=== PATIENT | male | born 1985 | race Caucasian/White ===

== ENCOUNTER 2021-08-09 06:53 | Outpatient (REF) | payer OTHER, SELFPAY ==
[2021-08-09 07:11] LABS: Hematocrit 44.3 % (42-52); Hemoglobin 15.1 g/dl (14.0-18.0); Mean Corpuscular HGB Conc 34.1 g/dl (31.0-36.0); Mean Corpuscular Hemoglobin 27.8 pg (27.0-33.0); Mean Corpuscular Volume 81.6 fL (80-98); Mean Platelet Volume 9.9 fL (9.4-12.4); Platelet Count 296 X10*3/uL (160-400); Red Blood Count 5.43 X10*6/uL (4.60-5.80); Red Cell Distribution Width 13.2 % (11.0-16.0)
[2021-08-09 07:42] LABS: Alanine Aminotransferase 24 U/L (0-40); Albumin Level 4.1 g/dL (3.5-5.0); Alkaline Phosphatase 80 U/L (39-117); Anion Gap 11 (12-20); Aspartate Amino Transferase 18 U/L (5-37); Bilirubin Total 0.6 mg/dL (0.0-1.0); Blood Urea Nitrogen 11 mg/dL (9-16); Calcium 8.9 mg/dL (8.4-10.2); Carbon Dioxide 25 mmol/L (22-29); Chloride 109 mmol/L (96-108); Cholesterol 132 mg/dL; Estimated Glomerular Filt Rate > 60; Glucose Fasting 107 mg/dL (60-99); HDL Cholesterol 28 mg/dL; LDL Cholesterol Calculated 91 mg/dl; Potassium 4.1 mmol/L (3.3-5.1); Sodium 141 mmol/L (135-145); Triglycerides 67 mg/dL
[2021-08-09 08:02] LABS: TSH reflex Free T4 1.38 uIU/mL (0.32-4.0)
[2021-08-09 08:07] LABS: HBc Num1 0.26 S/CO (0.00-0.79); Hepatitis B Core Antibody Nonreactive (Nonreactive)
[2021-08-09 08:09] LABS: HBS Num1 > 1000.00 mIU/mL (0-7.99); HBsAGNum1 0.47 S/CO (0.00-0.99); HIV AB/AG Nonreactive (Nonreactive); HIV Num 1 0.07 S/CO (0.00-0.99); Hepatitis B Surface Antigen Negative (Negative); ~HepC Num1 0.14 S/CO (0.00-0.79); ~Hepatitis B Surface Antibody REACTIVE (Nonreactive); ~Hepatitis C Antibody Nonreactive (Nonreactive)
[2021-08-09 09:03] LABS: Syphilis Screen Nonreactive (Nonreactive)
[2021-08-18 16:52] LABS: Chlamydia Pneumoniae IgA <1:16 titer (<1:16); Chlamydia Pneumoniae IgG <1:64 titer (<1:64); Chlamydia Pneumoniae IgM <1:10 titer (<1:10); Chlamydia Psittaci IgA <1:16 titer (<1:16); Chlamydia Psittaci IgG <1:64 titer (<1:64); Chlamydia Psittaci IgM <1:10 titer (<1:10); Chlamydia Trachomatis IgA <1:16 titer (<1:16); Chlamydia Trachomatis IgG <1:64 titer (<1:64); Chlamydia Trachomatis IgM <1:10 titer (<1:10)
== END 2021-08-09 06:54 | disposition home or self-care (01) ==
LOC: HO.LAB 06:53
PROVIDERS: PCP Physician Assistant; Visit Provider Physician Assistant
DX: I10 Essential (primary) hypertension (principal); Z13.1 Encounter for screening for diabetes mellitus; Z13.220 Encounter for screening for lipoid disorders; Z13.29 Encounter for screening for other suspected endocrine disorder
CPT/HCPCS: 36415; 80053; 80061; 84443; 85027; 86631; 86632; 86704; 86706; 86780; 86803; 87340; 87389

== ENCOUNTER 2022-05-23 07:29 | Outpatient (REF) | payer OTHER, SELFPAY ==
[2022-05-23 08:10] LABS: Hematocrit 44.8 % (42.0-52.0); Hemoglobin 15.2 g/dl (14.0-18.0); Mean Corpuscular HGB Conc 33.9 g/dl (31.0-36.0); Mean Corpuscular Volume 82.5 fL (80.0-98.0); Mean Platelet Volume 10.6 fL (9.4-12.4); Platelet Count 291 X10*3/uL (160-400); Red Blood Count 5.43 X10*6/uL (4.60-5.80); Red Cell Distribution Width 13.9 % (11.0-16.0); White Blood Count 6.3 X10*3/uL (4.8-10.8)
[2022-05-23 08:49] LABS: Alanine Aminotransferase 24 U/L (0-40); Albumin Level 4.3 g/dL (3.5-5.0); Alkaline Phosphatase 76 U/L (39-117); Anion Gap 13 (12-20); Aspartate Amino Transferase 22 U/L (5-37); Bilirubin Total 0.8 mg/dL (0.0-1.0); Blood Urea Nitrogen 16 mg/dL (9-16); Calcium 8.8 mg/dL (8.4-10.2); Carbon Dioxide 24 mmol/L (22-29); Chloride 107 mmol/L (96-108); Estimated Glomerular Filt Rate > 60; Glucose Fasting 86 mg/dL (60-99); Potassium 4.2 mmol/L (3.3-5.1); Sodium 140 mmol/L (135-145); Total Protein 7.2 g/dL (6.5-8.0)
[2022-05-23 09:08] LABS: HIV AB/AG Nonreactive (Nonreactive); HIV Num 1 0.11 S/CO (0.00-0.99)
[2022-05-23 09:13] LABS: TSH reflex Free T4 0.79 uIU/mL (0.32-4.0)
[2022-05-23 09:14] LABS: Syphilis Screen Nonreactive (Nonreactive)
[2022-05-23 14:01] LABS: CT PCR NOT DETECTED (Not Detect.); NG PCR NOT DETECTED (Not Detect.)
== END 2022-05-23 07:30 | disposition home or self-care (01) ==
LOC: HO.LAB 07:29
PROVIDERS: PCP Physician Assistant; Visit Provider Physician Assistant
DX: Z11.3 Encounter for screening for infections with a predominantly sexual mode of transmission (principal); Z11.8 Encounter for screening for other infectious and parasitic diseases; Z11.4 Encounter for screening for human immunodeficiency virus [HIV]; Z13.1 Encounter for screening for diabetes mellitus; Z13.29 Encounter for screening for other suspected endocrine disorder
CPT/HCPCS: 80053; 84443; 85027; 86780; 87389; 87491; 87591

== ENCOUNTER 2023-03-19 06:17 | Outpatient (REF) | payer OTHER, SELFPAY ==
[2023-03-19 08:08] LABS: Estimated Average Glucose 91 mg/dL; Hemoglobin A1c % 4.8 %
[2023-03-19 11:01] LABS: CT PCR NOT DETECTED (Not Detect.); NG PCR NOT DETECTED (Not Detect.)
[2023-03-20 08:27] LABS: HBS Num1 > 1000.00 mIU/mL (0-7.99); HBc Num1 0.05 S/CO (0.00-0.79); HBsAGNum1 0.33 S/CO (0.00-0.99); HIV AB/AG Nonreactive (Nonreactive); HIV Num 1 0.06 S/CO (0.00-0.99); Hepatitis B Core Antibody Nonreactive (Nonreactive); Hepatitis B Surface Antigen Negative (Negative); ~HepC Num1 0.14 S/CO (0.00-0.79); ~Hepatitis B Surface Antibody REACTIVE (Nonreactive); ~Hepatitis C Antibody Nonreactive (Nonreactive)
[2023-03-20 08:33] LABS: Syphilis Screen Nonreactive (Nonreactive)
== END 2023-03-19 06:18 | disposition home or self-care (01) ==
LOC: HO.LAB 06:17
PROVIDERS: Nurse Practitioner Family; PCP Physician Assistant; Visit Provider Physician Assistant
DX: Z11.4 Encounter for screening for human immunodeficiency virus [HIV] (principal); E66.9 Obesity, unspecified; Z20.2 Contact with and (suspected) exposure to infections with a predominantly sexual mode of transmission; Z13.1 Encounter for screening for diabetes mellitus
CPT/HCPCS: 0353U; 83036; 86704; 86706; 86780; 86803; 87340; 87389

== ENCOUNTER 2023-04-02 06:10 | Outpatient (REF) | payer OTHER, SELFPAY ==
[2023-04-02 07:32] LABS: Hemoglobin 14.9 g/dl (14.0-18.0); Mean Corpuscular HGB Conc 33.9 g/dl (31.0-36.0); Mean Corpuscular Hemoglobin 27.9 pg (27.0-33.0); Mean Corpuscular Volume 82.4 fL (80.0-98.0); Mean Platelet Volume 10.3 fL (9.4-12.4); Platelet Count 301 X10*3/uL (160-400); Red Blood Count 5.34 X10*6/uL (4.60-5.80); Red Cell Distribution Width 13.3 % (11.0-16.0); White Blood Count 6.4 X10*3/uL (4.8-10.8)
[2023-04-02 07:59] LABS: Alanine Aminotransferase 31 U/L (0-40); Alkaline Phosphatase 70 U/L (39-117); Anion Gap 12 (12-20); Aspartate Amino Transferase 24 U/L (5-37); Bilirubin Total 0.7 mg/dL (0.0-1.0); Blood Urea Nitrogen 12 mg/dL (9-16); Calcium 8.7 mg/dL (8.4-10.2); Carbon Dioxide 24 mmol/L (22-29); Chloride 108 mmol/L (96-108); Cholesterol 151 mg/dL; Estimated Glomerular Filt Rate > 60; Glucose Fasting 95 mg/dL (60-99); HDL Cholesterol 35 mg/dL; LDL Cholesterol Calculated 99 mg/dl; Potassium 4.2 mmol/L (3.3-5.1); Sodium 140 mmol/L (135-145); Total Protein 6.8 g/dL (6.5-8.0); Triglycerides 87 mg/dL
[2023-04-02 08:20] LABS: TSH reflex Free T4 1.36 uIU/mL (0.32-4.0)
[2023-04-10 14:18] LABS: Testosterone, Free 52.1 pg/mL (35.0-155.0); Testosterone, Total 314 ng/dL (250-1100)
== END 2023-04-02 06:11 | disposition home or self-care (01) ==
LOC: HO.LAB 06:10
PROVIDERS: PCP Physician Assistant; Visit Provider Physician Assistant
DX: E66.01 Morbid (severe) obesity due to excess calories (principal); Z13.29 Encounter for screening for other suspected endocrine disorder; Z13.220 Encounter for screening for lipoid disorders; Z13.1 Encounter for screening for diabetes mellitus; Z68.43 Body mass index [BMI] 50.0-59.9, adult; E66.9 Obesity, unspecified
CPT/HCPCS: 36415; 80053; 80061; 84402; 84403; 84443; 85027

== ENCOUNTER 2023-07-06 07:54 | Outpatient (AMB) | payer OTHER, SELFPAY ==
[2023-07-06 07:56] VITALS: BP 140/78; PULSE 81; O2SAT 98; BMI 52.9
--- NOTE | 2023-07-06 07:56 | MHC.PC.OV ---
Vital Signs 07/06/23 07:56 Height 6 ft 3 in Weight 423 lb BMI 52.9 BP 140/78 H Blood Pressure Location Lt brachial Position Sitting Pulse 81 Pulse Source Pulse Oximeter Pulse Oximetry (%) 98 Oxygen Delivery Method Room Air Intake Visit Reasons: PE Allergies No Known Allergies Allergy (Verified 07/06/23 08:15) Medication List - Last Reconciled 07/06/23 by Franc Mccauley PA-C Tobacco use date assessed: 03/18/23 Dental Screening Dental Screen Date: 07/06/23 Did you have a dental visit in the last 12 months?: Yes Did you have a dental problem in the last 6 months where you did not have access to dental care?: No Was dental information given to patient?: Patient has dentist HPI PE HPI Details Patient is a 38-year-old male here today for annual physical. Patient has a past medical history significant for obesity. .. Morbid obesity: He is status post gastric sleeve many years ago. has been working on being more physically active to reduce his weight. 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 Did have sleep study 2017 which showed normal sleep results. Unfortunately has gained weight since last office visit. We have tried to prescribe him medication for weight loss though insurance did not cover. 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 Will try to prescribe him Wegovy for weight loss. .. Elevated blood pressure reading: Noted elevated blood pressure reading today in office. He is not interested in starting medications for his blood pressure as he attributes his blood pressure being elevated cause of his weight and would like to work on weight reduction before starting medication. Advised denies any headache, chest discomfort, heart palpitations. 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 1. Little interest or pleasure in doing things: not at all 2. Feeling down, depressed, or hopeless: not at all 3. Trouble falling or staying asleep, or sleeping too much: not at all 4. Feeling tired or having little energy: not at all 5. Poor appetite or overeating: not at all 6. Feeling bad about yourself - or that you are a failure or have let yourself or your family down: not at all 7. Trouble concentrating on things, such as reading the newspaper or watching television: not at all 8. Moving or speaking so slowly that other people could have noticed. Or the opposite - being so fidgety or restless that you have been moving around a lot more than usual: not at all 9. Thoughts that you would be better off or of hurting yourself in some way: not at all Total score: 0 Depression Screening Interpretation: Negative 69249 - PHQ-9 Billing: Yes Source: Developed by Drs. Karthik Omer, Carlita Andrade, James Díaz and colleagues, with an educational mari from [employer]. Thrive Questionnaire Date Thrive assessed: 03/18/23 AUDIT C Alcohol Use Questionnaire (AUDIT-C) 1. How often do you have a drink containing alcohol?: Never Total Score: 0 ARLEEN-7 AMB Questionnaire ARLEEN-7 Date ARLEEN - 7 assessed: 07/06/23 Feeling nervous, anxious, or on edge: 0 = Not at all Not being able to stop or control worryin = Not at all Worrying too much about different things: 0 = Not at all Trouble relaxin = Not at all Being so restless that it is hard to sit still: 0 = Not at all Becoming easily annoyed or irritable: 0 = Not at all Feeling afraid as if something awful might happen: 0 = Not at all Total ARLEEN-7 score (0-4 normal; 5-9 mild; 10-14 moderate; 15-21 severe): 0 Source: Developed by Drs. Karthik Omer, James Avalos and colleagues, with an educational mari from [employer]. ARLEEN-7 Assessment Billing ARLEEN-7 Assessment Tool: ARLEEN-7 Assessment 88871 Review of Systems Const Denies body aches, Denies chills, Denies excessive sweating, Denies fatigue, Denies fever(s) and Denies headache(s) Eyes Denies blurry vision ENT Denies dysphagia, Denies vertigo, Denies dizziness, Denies headache(s), Denies hearing loss and Denies tinnitus Card Denies chest pain, Denies chest pain with activity, Denies syncope, Denies irregular heart rhythm and Denies dyspnea Resp Denies chest congestion, Denies cough, Denies hemoptysis, Denies dyspnea and Denies wheezing GI Denies abdominal pain, Denies melena, Denies hematochezia, Denies coffee ground emesis, Denies dysphagia, Denies diarrhea, Denies nausea and Denies vomiting Denies difficulty urinating, Denies dysuria, Denies urinary frequency, Denies urinary hesitancy and Denies urinary urgency Musc Denies arthralgias, Denies limited range of motion, Denies muscle cramps and Denies muscle weakness Skin/Breast Denies rash and Denies skin ulcer Neuro Denies Abnormal speech present, Denies confusion, Denies vertigo, Denies dizziness, Denies syncope, Denies headache(s), Denies memory loss and Denies seizure-like activity Psych Denies anxiety, Denies confusion, Denies depression, Denies memory loss, Denies panic attacks and Denies paranoia Endo Denies excessive sweating, Denies fatigue, Denies flushing, Denies polydipsia and Denies polyuria Aller/Immun Denies wheezing Physical exam (Primary Care) Vital Signs: Last Vital Signs Pulse 81 07/06/23 07:56 BP 140/78 H 07/06/23 07:56 Pulse Ox 98 07/06/23 07:56 Oxygen Delivery Method Room Air 07/06/23 07:56 BMI result Body Mass Index 52.9 BMI Assessment/Plan discussion: High Tobacco/Smoking Status: Tobacco use Status Tobacco use date assessed 03/18/23 07/06/23 08:08 Patient Tobacco Use Status Current someday Tobacco 07/06/23 08:08 Tobacco use type Cigar 07/06/23 08:08 e-Cigarette/Vaping Use Never Used 07/06/23 08:08 PHQ-9: PHQ-9 Score PHQ-9: Total score 0 07/06/23 08:21 Depression Screening Interpretation: Negative Thrive Assessment: Date of Thrive Assessment Date Thrive assessed 03/18/23 07/06/23 08:08 Const Other: Obese General: cooperative, comfortable, no acute distress, alert and awake; No confusion Orientation/consciousness: oriented to person, oriented to place, patient oriented x3 and No confusion HENMT Head: Yes normocephalic Ears: external ears normal and TM's normal bilaterally Face and sinus: No sinus tenderness Mouth: Normal oral and palatal mucosa present and tongue normal Teeth and gingiva: dentition normal and gingiva normal Throat: Yes posterior oropharynx normal, Yes tonsils normal and Yes uvula midline Eyes Conjunctivae: conjunctivae normal Sclerae: sclerae normal Pupils: Equal, round and reactive pupils present EOM: EOMs intact bilaterally Direct Ophthalmoscopy: No no photophobia Neck Neck: Yes no lymphadenopathy, No tender and Yes no JVD Thyroid: Thyroid normal Carotids: no bruits Chest Chest palpation & inspection: no tenderness Resp Effort & Inspection: normal respiratory effort, no audible wheezes, not labored and no stridor Auscultation: no crackles, no rales, no rhonchi and no wheezes Cardio Jugular venous distension: no JVD Rate: regular rate, not bradycardic and not tachycardic Rhythm: regular rhythm Bruits: no carotid bruits Peripheral pulses: Peripheral pulses 2+ throughout GI Inspection: Yes normal to inspection, No abdominal wall ecchymosis and No visible herniation Palpation (GI): Soft to palpation, nontender, no guarding, not rigid and No hepatosplenomegaly present Auscultation: normoactive bowel sounds General: Yes no CVA tenderness Back/Spine/Pelvis Back: no CVA tenderness and No back tenderness Cervical Spine: cervical ROM normal Thoracic/Lumbar Spine: thoracic and lumbar spine normal to inspection, straight leg raise negative bilaterally, No thoraco-lumbar ROM limited and No lumbar spinal tenderness Skin Lesions: no lesions Rashes: no rashes Wounds: no wounds Neuro General: oriented to person, oriented to place, patient oriented x3, CN's II-XI intact bilaterally and No confusion Cranial nerves: Yes Equal, round and reactive pupils present and Yes Normal accommodation reflex present Cognition (Neuro): normal cognition Speech: No Abnormal speech present Gait exam (Neuro): Normal gait present Motor exam (neuro): 5/5 motor strength present throughout Extrem Right upper extremity: full ROM; no cyanosis Left upper extremity: full ROM; no cyanosis Right lower extremity: no edema Left lower extremity: no edema Psych Appearance: grossly normal Mental Status: mental status grossly normal Affect: normal affect Attitude: cooperative Thought process: Normal thought process present Assessment and Plan Assessment & Plan (1) Annual physical exam: Code(s): Z00.00 - Encounter for general adult medical examination without abnormal findings (2) Obese: Code(s): E66.9 - Obesity, unspecified Qualifiers: Body mass index: BMI 50.0-59.9 Obesity classification: adult class 3 (BMI >= 40) Obesity type: due to excess calories Serious obesity comorbidity presence: without serious comorbidity Qualified Code(s): E66.01 - Morbid (severe) obesity due to excess calories; Z68.43 - Body mass index [BMI] 50.0-59.9, adult Plan: Patient does understand his BMI is well over 50 and will try to work on lifestyle modifications to reduce his weight. He is status post gastric sleeve. Unfortunately has gained his weight back. We have tried to send several weight loss medication though not covered by insurance. Does have core minute day of higher blood pressure readings here in the office. Try to send in Wegovy. He is willing to reestablish with weight management program and dietitian. (3) HTN (hypertension): Code(s): I10 - Essential (primary) hypertension Qualifiers: Hypertension type: primary hypertension Qualified Code(s): I10 - Essential (primary) hypertension Plan: Blood pressure reading slightly elevated today in office. Not interested in starting medication at this time will work on reducing his weight as his weight is likely the reason for his higher blood pressures. Orders: Orders Complete Blood Count no Diff 11 Months Z13.1 - Encounter for screening for diabetes mellitus Comprehensive [place]. Panel Fast 11 Months Z13.1 - Encounter for screening for diabetes mellitus Lipid Panel 11 Months I10 - Essential (primary) hypertension Microalbumin, Random (w Creat) 11 Months I10 - Essential (primary) hypertension Referrals Nutrition/Dietitian Referral E66.01 - Morbid (severe) obesity due to excess calories, Z68.43 - Body mass index [BMI] 50.0-59.9, adult Medical Weight Management Referral E66.01 - Morbid (severe) obesity due to excess calories, Z68.43 - Body mass index [BMI] 50.0-59.9, adult Medications: New semaglutide (weight loss) (Wegovy) administer weeks 1 through 4 of therapy 0.25 mg (0.5 mL) subcut QWEEK 4 weeks 2 mL 0RF E66.9 - Obesity, unspecified, I10 - Essential (primary) hypertension semaglutide (weight loss) (Wegovy) administer weeks 1 through 4 of therapy 0.25 mg (0.5 mL) subcut QWEEK 4 weeks 2 mL 0RF E66.9 - Obesity, unspecified, I10 - Essential (primary) hypertension Coding Level of Care Code Est Pt [facility] Care [id number]) Diagnoses Annual physical exam Z00.00 Class 3 severe obesity due to excess calories without serious comorbidity with body mass index (BMI) of 50.0 to 59.9 in adult E66.01; Z68.43 Body mass index: BMI 50.0-59.9 Obesity classification: adult class 3 (BMI >= 40) Obesity type: due to excess calories Serious obesity comorbidity presence: without serious comorbidity Primary hypertension I10 Hypertension type: primary hypertension Additional Codes ARLEEN-7 Assessment Billing - ARLEEN-7 Assessment Tool: ARLEEN-7 Assessment 94231 ([id number])
== END 2023-07-06 08:43 | disposition home or self-care (01) ==
PROVIDERS: PCP Physician Assistant; Visit Provider Physician Assistant
DX: Z00.00 Encounter for general adult medical examination without abnormal findings (principal); E66.01 Morbid (severe) obesity due to excess calories; Z68.43 Body mass index [BMI] 50.0-59.9, adult; I10 Essential (primary) hypertension
CPT/HCPCS: 99395

== ENCOUNTER → 2023-11-05 12:21 | Outpatient (BNVA) | payer OTHER, SELFPAY | PROVIDERS: PCP Physician Assistant; Visit Provider Surgery ==

== ENCOUNTER → 2023-11-20 08:11 | Outpatient (BNVA) | payer OTHER, SELFPAY | PROVIDERS: PCP Physician Assistant; Visit Provider Surgery ==

== ENCOUNTER 2023-11-20 13:57 | Outpatient (AMB) | payer OTHER, SELFPAY ==
--- OUTSIDE RECORDS SUMMARY | 2023-11-20 08:14 | XMS_ITS | Continuity of Care Document ---
Author Name Unknown Organization Pre [facility] Address [address] [address]- Care Team Providers Care Corporate Development Officer Name Role Phone Joseph Thomas MD, Ashley Chowdhury Primary Care Physician [phone] Encounter [facility] [place] Date(s): 09/28/19 - 10/08/19 Pre Op [facility]flow [address] [address]- [facility] Attending Physician: Shahbaz Marroquin Admitting Physician: Shahbaz Marroquin Referring Physician: Shahbaz Marroquin Allergies, Adverse Reactions, Alerts Substance Reaction Severity Status NKA Active Medications acetaminophen 325 mg oral tablet 650 mg, 2, tablet, By Mouth, Every 4 hours, # 30 tablet, Refills 0, Tot. Refills 0, Maintenance, 10/04/19 12:56:51 EST, Print Requisition Start Date: 10/04/19 Status: Ordered Colace sodium 100 mg oral capsule 100 mg, 1, capsule, By Mouth, 2 times a day, # 60 capsule, Refills 0, Tot. Refills 0, Maintenance, 10/04/19 12:56:45 EST, Print Requisition Start Date: 10/04/19 Status: Ordered Multivitamin Daily, 0 Refills, Maintenance, 08/15/19 16:04:18 EDT Start Date: 08/15/19 Status: Ordered omeprazole 20 mg oral enteric coated capsule 1 capsule = 20 mg, By Mouth, 2 times a day, # 60 capsule, 4 Refills, Maintenance, 10/04/19 12:57:22EST, EC Capsule Start Date: 10/04/19 Status: Ordered Problem List Condition Effective Dates Status Health Status Inform ant Eczema(Confirmed) Active Gastritis, Helicobacter pylori(Confirmed) Active Morbid obesity with BMI of 5 0.0-59.9, adult(Confirmed) Active Social History Social History Type Response Smoking Status Cigars or pipes but not daily within last 30 days entered on: 10/03/19 Sex
--- OUTSIDE RECORDS SUMMARY | 2023-11-20 08:14 | XMS_ITS | Continuity of Care Document ---
Author Name Unknown Organization [facility] Address [address] [place] [address] ve [address] [place] [address]- Care Team Providers Care Internet Sales Consultant Name Role Phone Joseph Thomas MD, Ashley Chowdhury Primary Care Physician Encounter [facility] [place] Date(s): 04/18/20 - 06/15/20 [facility] [address] [place] [address]- [facility] Attending Physician: Clay PAULSON,RD,TRINAN, Felipa Perkins Allergies, Adverse Reactions, Alerts Substance Reaction Severity [...]
--- OUTSIDE RECORDS SUMMARY | 2023-11-20 08:14 | XMS_ITS | Continuity of Care Document ---
Author Name Unknown Organization [facility] Address [address] [place] [address] [address] [place] [address]- Care Team Providers Care Certified Art Therapist Name Role Phone Joseph Thomas MD, Ashley Chowdhury Primary Care Physician [phone] [place] [facility] [place] - 06/15/[address] [place] [address]- [facility] Attending Physician: Admtr, [id number] Admitting Physician: AdmtrShahbaz Referring Physician: Admtr, Ar8 Allergies, Adverse Reactions, Alerts Substance Reaction Severity [...]
--- OUTSIDE RECORDS SUMMARY | 2023-11-20 08:14 | XMS_ITS | Continuity of Care Document ---
Author Name Unknown Organization [facility] Address [address] [place] [address] [address] [place] [address]- Care Team Providers Care Glass Sagger Name Role Phone Joseph Thomas MD, Ashley Chowdhury Primary Care Physician En[place] [facility] [place] Date(s): 10/11/19 - 10/21/[address] [place] [address]- [facility] Attending Physician: Admimer, [id number] Admitting Physician: Admtr, Ar8 Referring Physician: Admtr, Ar8 Allergies, Adverse Reactions, [...]
--- OUTSIDE RECORDS SUMMARY | 2023-11-20 08:14 | XMS_ITS | Continuity of Care Document ---
Author Name Unknown Organization [facility] Address [address] [place] [address] [address] [place] [address]- Care Team Providers Care Yarn Salvager Name Role Phone Joseph Thomas MD, Ashley Chowdhury Primary Care Physician [phone] Encounter [facility] [place] Date(s): 11/02/19 - 11/09/[address] [place] [address]- [facility] Encounter Diagnosis Morbid obesity with BMI of 50.0-59.9, adult(Discharge Diagnosis) - 11/02/19 Attending Physician: Jong Palacio MD Referring Physician: Ashley Arreaga MD Allergies, Adverse Reactions, Alerts Substance Reaction Severity [...] with BMI of 5 0.0-59.9, adult(Confirmed) Active Diagnosis Diagnosis Type Effective Dates Health Status Cl inical Service Informant Morbid obesity with BMI of 50.0-59.9, adult Discharge Diagnosis 11/02/19 Vital Signs Most recent to oldest [Reference Range]: 1 Height 190.53 cm (11/02/19 10:39 AM) Weight 176 kg (11/02/19 10:39 AM) Pulse Rate [55-90 bpm] 52 bpm *L* (11/02/19 10:39 AM) Body Mass Index [18.5-24.99] 48.48 *>HHI* (11/02/19 10:39 AM) Blood Pressure [90-138/55-84 mm Hg] 149/ 90mm Hg *H* (11/02/19 10:39 AM) Respiratory Rate [16-30 br/min] 16 br/mi n (11/02/19 10:39 AM) Temperature [96.8-100.4 DegF] 98.6 DegF (11/02/19 10:39 AM) Blood pressure sites Arm, left (11/02/19 10:39 AM) Temperature Route Temporal (11/02/19 10:39 AM) Weight Obtained Via Standing scale (11/02/19 10:39 AM) Social History Social History Type Response Smoking Status Cigars or pipes but not daily within last 30 days entered on: 10/03/19 Sex
--- OUTSIDE RECORDS SUMMARY | 2023-11-20 08:14 | XMS_ITS | Continuity of Care Document ---
Author Name Unknown Organization [facility] Address [address] [place] [address] [address] [place] [address]- Care Team Providers Care Mink Rancher Name Role Phone Joseph Thomas MD, Ashley Chowdhury Primary Care Physician Encounter [facility] [place] Date(s): 10/27/19 - 11/03/[address] [place] [address]- [facility] Attending Physician: Clay PAULSON,RD,LDN, Felipa Perkins Allergies, Adverse Reactions, Alerts Substance [...]
--- OUTSIDE RECORDS SUMMARY | 2023-11-20 08:14 | XMS_ITS | Continuity of Care Document ---
Author Name Unknown Organization [facility] Address [address] [place] [address] [address] [place] [address]- Care Team Providers Care Out Of School Hours Care Worker Name Role Phone Joseph Thomas MD, Ashley Chowdhury Primary Care Physician [place] [facility] [place] Date(s): 10/11/19 - 10/18/[address] [place] [address]- [facility] Attending Physician: Jong Palacio MD Referring Physician: [...] with BMI of 5 0.0-59.9, adult(Confirmed) Active Vital Signs Most recent to oldest [Reference Range]: 1 Height 190.53 cm (10/11/19 10:28 AM) Weight 177.6 kg (10/11/19 10:28 AM) Pulse Rate [55-90 bpm] 68 bpm (10/11/19 10:28 AM) Body Mass Index [18.5-24.99] 48.92 *>HHI* (10/11/19 10:28 AM) Blood Pressure [90-138/55-84 mm Hg] 135/ 80mm Hg (10/11/19 10:28 AM) Respiratory Rate [16-30 br/min] 16 br/mi n (10/11/19 10:28 AM) Temperature [96.8-100.4 DegF] 95.4 DegF *L* (10/11/19 10:28 AM) Blood pressure sites Arm, left (10/11/19 10:28 AM) Temperature Route Temporal (10/11/19 10:28 AM) Weight Obtained Via Standing scale (10/11/19 10:28 AM) Social History Social History Type Response Smoking Status Cigars or pipes but not daily within last 30 days entered on: 10/03/19 Sex
--- OUTSIDE RECORDS SUMMARY | 2023-11-20 08:14 | XMS_ITS | Continuity of Care Document ---
Author Name Unknown Organization [facility] Address [address] [place] [address]- Care Team Providers Care Chief Ii Dispatcher Name Role Phone Joseph Thomas MD, Ashley Chowdhury Primary Care Physician [phone] [place] [facility] [place] 10/03/19 - 10/05/[address] [address] Discharge Disposition: A-D/C Home Attending Physician: Jong Palacio MD Admitting Physician: Jong Palacio MD Referring Physician: Jong Palacio MD Allergies, Adverse Reactions, Alerts Substance Reaction [...] with BMI of 5 0.0-59.9, adult(Confirmed) Active Procedures Procedure Date Related Diagnosis Body Site Status Laparoscopic sleeve gastrectomy Completed Vital Signs Most recent to oldest [Reference Range]: 1 2 3 Height 190.53 cm (10/05/19 7:41 AM) 190.53 cm (10/04/19 4:00 PM) 190.53 cm (10/04/19 11:54 AM) Weight 184.2 kg (10/03/19 8:29 PM) 192.4 kg (10/03/19 11:01 AM) 192.4 kg (09/19/19 7:56 AM) Oxygen Saturation [94-100 %] 100 % (10/05/19 7:41 AM) 98 % (10/05/19 3:00 AM) 100 % (10/05/19 12:00 AM) Pulse Rate [55-90 bpm] 54 bpm *L* (10/05/19 7:41 AM) 63 bpm (10/05/19 3:00 AM) 51 bpm *L* (10/05/19 12:00 AM) Body Mass Index [18.5-24.99] 50.74 *>HHI* (10/03/19 8:29 PM) 53 *>HHI* (10/03/19 11:01 AM) 53 *>HHI* (09/19/19 7:56 AM) Blood Pressure [90-138/55-84 mm Hg] 155/89mm Hg *H* (10/05/19 7:41 AM) 147/82mm Hg *H* (10/05/19 3:00 AM) 152/89mm Hg *H* (10/05/19 12:00 AM) Respiratory Rate [16-30 br/min] 20 br/min (10/05/19 9:31 AM) 20 br/min (10/05/19 9:01 AM) 16 br/min (10/05/19 7:41 AM) Temperature [96.8-100.4 DegF] 98.5 DegF (10/05/19 7:41 AM) 97.9 DegF (10/05/19 3:00 AM) 97.9 DegF (10/05/19 12:00 AM) Liters per Minute 3 L/min (10/03/19 8:00 PM) 3 L/min (10/03/19 7:45 PM) 3 L/min (10/03/19 7:30 PM) Mode of Delivery (Oxygen) Room air (10/05/19 7:41 AM) Room air (10/05/19 3:00 AM) Room air (10/05/19 12:00 AM) Blood pressure sites Arm, right (10/05/19 7:41 AM) Arm, right (10/05/19 3:00 AM) Arm, right (10/05/19 12:00 AM) Temperature Route Oral (10/05/19 7:41 AM) Oral (10/05/19 3:00 AM) Oral (10/05/19 12:00 AM) Dry Weight 184.2 kg (10/03/19 8:29 PM) 184.2 kg (10/03/19 11:01 AM) 192.4 kg (09/19/19 7:56 AM) Weight Obtained Via Standing scale (09/19/19 7:56 AM) Dry Weight Obtained Via Standing scale (10/03/19 11:01 AM) Standing scale (09/19/19 7:56 AM) Sensory deficits None (10/03/19 8:29 PM) None (09/19/19 7:38 AM) Mobility assistance Independent (10/03/19 8:29 PM) Independent (09/19/19 7:38 AM) Social History Social History Type Response Smoking Status Cigars or pipes but not daily within last 30 days entered on: 10/03/19 Sex
--- OUTSIDE RECORDS SUMMARY | 2023-11-20 08:14 | XMS_ITS | Continuity of Care Document ---
Author Name Unknown Organization [facility] Address [address] [place] [address] [address] [place] [address]- Care Team Providers Care Auditor In Charge Name Role Phone Joseph Thomas MD, Ashley Chowdhury Primary Care Physician [place] [facility] [place] Date(s): 07/19/19 - 10/12/[address] [place] [address]- [facility] Attending Physician: Jong Palacio MD Referring Physician: [...]
--- OUTSIDE RECORDS SUMMARY | 2023-11-20 08:14 | XMS_ITS | Continuity of Care Document ---
Author Name Unknown Organization Pre Op Overflow Address [address] [address]- Care Team Providers Care K 12 Principal Name Role Phone Joseph Thomas MD, Ashley Chowdhury Primary Care Physician Encounter [facility] Date(s): 09/28/19 - 10/05/19 Pre Op Overflow [address] [address]- [facility] Attending Physician: Peter MORGAN, Felisha More Referring Physician: Jong Palacio MD Allergies, Adverse [...] oldest [Reference Range]: 1 Height 190.53 cm (09/28/19 9:05 AM) Weight 189 kg (09/28/19 9:05 AM) Pulse Rate [55-90 bpm] 64 bpm (09/28/19 9:05 AM) Body Mass Index [18.5-24.99] 52.06 *>HHI* (09/28/19 9:05 AM) Blood Pressure [90-138/55-84 mm Hg] 143/ 78mm Hg *H* (09/28/19 9:05 AM) Respiratory Rate [16-30 br/min] 17 br/mi n (09/28/19 9:05 AM) Temperature [96.8-100.4 DegF] 98.6 DegF (09/28/19 9:05 AM) Blood pressure sites Arm, right (09/28/19 9:05 AM) Temperature Route Temporal (09/28/19 9:05 AM) Social History Social History Type Response Smoking Status Cigars or pipes but not daily within last 30 days entered on: 10/03/19 Sex
--- OUTSIDE RECORDS SUMMARY | 2023-11-20 08:14 | XMS_ITS | Continuity of Care Document ---
Author Name Unknown Organization [facility] Address [address] [place], [place] [address] [address] [place] [address]- Care Team Providers Care Well Puller Head Name Role Phone Joseph Thomas MD, Ashley Chowdhury Primary Care Physician [phone] Encounter [facility] Date(s): 01/19/20 - 05/18/20 [facility] [address] [place] [address]- [facility] Attending Physician: Clay PAULSON,RD,TRINAN, Felipa Perkins Allergies, [...]
--- OUTSIDE RECORDS SUMMARY | 2023-11-20 08:14 | XMS_ITS | Continuity of Care Document ---
Author Name Unknown Organization [facility] Address [address] [place], [place] [address] ve [address] [place] [address]- Care Team Providers Care Electrical Engineer Name Role Phone Ashley Arreaga MD Primary Care Physician [phone] Encounter [facility] Date(s): 01/19/20 - 05/18/20 [facility] [address] [place] [address]- [facility] Attending Physician: Geovanny Hebert Referring Physician: Ashley Arreaga MD Allergies, Adverse [...]
--- NOTE | 2023-11-20 15:13 | A.OFFVIS_ITS ---
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 BMI 53.3 HPI Details Start time: 3.04pm, End time: 4.04pm ?I spent 50 minutes speaking with the patient on the phone plus an additional 10 minutes reviewing and updating records for a total of 60 minutes HPI Comments History of Present Illness Details Previous weight loss efforts: (LSG at [facility]: Initial weight: 495lbs pre-surgery WL: 435lbs, lowest: 415lbs) Wakes up: 5am, Sleeps: 11pm Breakfast: 6.45am (3 eggs) Lunch: 2pm (chicken) Dinner: 9pm (pasta, chicken and rice) Snacks: 9am (banana), 4pm (chips) Exercise: none Fluids: Coffee (4 cups/day with sugar), tea: none, soda: 2/wk (diet coke), juice: 1/wk, ETOH: none PFSH Medical History (Updated 11/20/23 @ 15:16 by Brady Wiseman MD) Morbid obesity Surgical History (Updated 11/05/23 @ 13:23 by Margie Machuca CMA) Hx of vasectomy History of gastrointestinal surgery Social History Housing: Apartment Alcohol intake: never Patient Tobacco Use Status: Current someday Tobacco user Tobacco use type: Cigar e-Cigarette/Vaping Use: Never Used Second Hand Smoke Exposure: No service: No Current occupational status: employed 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 Plan for lap sleeve gastrectomy. If diaphragmatic or ventral hernias are present at time of surgery, these will be repaired laparoscopically as well. Risks and complications were discussed in detail including possible conversion to an open procedure, anastomotic leak, bleeding requiring transfusion, small bowel obstruction, , DVT and pulmonary embolism, cardiac, or pulmonary complications, as long-term complications such as anastomotic ulcer, insufficient weight loss and vitamin deficiencies. I emphasized the importance of close follow-up, adherence to instructions and good communication. 2. Nutritional counseling. Start with one CELEBRATE REBUILD protein (buy at [facility]) shakes (TWO scoops in 8oz low fat unsweetened almond milk each) at 6am-8am, 3 protein bars (CELEBRATE protein bars, buy at [facility] [employer] shop) at 9am-11am, 12pm-2pm and 3pm-5pm, dinner at 6pm-7pm (6 forks of protein and 10 forks of salad/vegetables) AND one more Celebrate REBUILD protein shake (2 scoops in 8oz almond milk) at 9pm-11pm. So you do 2 protein shakes, 3 protein bars and one meal per day. Meal to include lean meat (beef, fish, pork, turkey, chicken), or belgian yogurt, or egg whites, or beans with a salad with olive oil and fruits (berries, pears, apples, kiwi). Avoid salt, breads, potatoes, rice, pasta, desserts. 3. Each shake would be drunk slowly, like coffee in a period of 2 hours. You may add your coffee into the shakes if flavors match. 4. Cut each bar in 4 pieces and eat each piece in 30min ?to make each bar last 2 hours. 5. I emphasized the importance of measuring accurately the food portion and measure it when serving the food in plate 6. The meal portions include 6 full-size forks of meat and 6 full-size forks of salad. You always eat the meat portion but you can replace up to 3 forks for salad/vegetables with rice, potatoes or pasta, or a fruit ?if you like. The less you do it the better weight loss will be. 7. One full-size fork is what it can be scooped on the fork without falling aside and not what can be bit with the fork. Use regular forks like those you find in a typical restaurant. 8.? Please send me weight measurements as soon as possible and then once a week. Always include your diet and exercise plan. 9. Start walking outside daily, tracking calories with a goal of 300 calories per day, daily. Goal is to burn 2000 calories per week on exercise, which means either 300 calories daily, or 400 calories 5 days per week, or 500 calories 4 days per week, or 650 calories 3 days per week. 10. The best choice would be to purchase a stationary bike, elliptical or treadmill at home that can track calories. Let me know if you do so I can give you an exercise plan. 11.Goal is to lose at least 1.5-2lbs per week 12. Goal to lose 10% of your weight before surgery, which is about 42lbs. Ultimate weight goal: 384lbs before surgery 13. Please follow the diet plan exactly without any change. If you don't like something about the plan or you feel hungry you need to communicate with me so I can help you revise the plan. You should not change the plan yourself. Telehealth Telehealth Location of provider rendering services: practice address Location of patient: address on file Patient Identification confirmed using: Name, : Yes Telehealth method: voice only Patient verbally consented to treatment: Yes Patient verbally consented to billing insurance company: Yes Patient informed of any privacy concerns related to visit: Yes Minutes spent on Phone/Video with Pt.: 60 Coding Level of Care Code Tele New Pt Level 5 (14106) Diagnoses Morbid obesity E66.01 Time Spent (min) 60
[2023-11-20 15:27] VITALS: BMI 54.7
== END 2023-11-20 16:06 | disposition home or self-care (01) ==
PROVIDERS: PCP Physician Assistant; Visit Provider Surgery
DX: E66.01 Morbid (severe) obesity due to excess calories (principal); Z68.43 Body mass index [BMI] 50.0-59.9, adult
CPT/HCPCS: G2252

== ENCOUNTER 2023-11-23 07:32 | Outpatient (REF) | payer OTHER, SELFPAY ==
--- NOTE | ~2023-11-23 | XR_ITS ---
EXAMINATION: XR CHEST CLINICAL INFORMATION: Morbid severe obesity due to excess calories. COMPARISON: 12/21/2012 TECHNIQUE: 2 views of the chest were obtained. FINDINGS: The lung volumes are low. Heart size is normal. There is no gross pneumothorax. No pleural effusion. No focal consolidation to suggest pneumonia. XR/XR chest 2V IMPRESSION: Low lung volumes. No evidence of pneumonia.
--- NOTE | 2023-11-23 08:24 | ECG_ITS ---
Test Reason : e66.01 Blood Pressure : / mmHG Vent. Rate : 057 BPM Atrial Rate : 057 BPM P-R Int : 164 ms QRS Dur : 086 ms QT Int : 420 ms P-R-T Axes : 006 -03 004 degrees QTc Int : 408 ms Sinus bradycardia with sinus arrhythmia Otherwise normal ECG No previous ECGs available Referred By: Brady Wiseman Electronically Signed By:GAGAN ALBA MD
[2023-11-23 08:27] LABS: MANUAL DIFF FLAG NO
[2023-11-23 09:02] LABS: Basophils Percent Auto 0.6 % (0-2); Eosinophils Absolute Auto 0.3 X10*3/uL (0.0-0.4); Eosinophils Percent Auto 5.1 % (0-4); Imm Gran Abs Auto 0.02 X10*3/uL (0.00-0.03); Imm Gran Pct Auto 0.3 % (0.0-0.4); Lymphocytes Absolute Auto 1.8 X10*3/uL (1.2-4.9); Lymphocytes Percent Auto 28.9 % (20-40); Mean Corpuscular HGB Conc 34.1 g/dl (31.0-36.0); Mean Corpuscular Hemoglobin 27.8 pg (27.0-33.0); Mean Corpuscular Volume 81.6 fL (80.0-98.0); Mean Platelet Volume 10.4 fL (9.4-12.4); Monocytes Absolute Auto 0.5 X10*3/uL (0.1-1.2); Monocytes Percent Auto 7.5 % (2-11); Neutrophils Absolute Auto 3.6 x10*3/uL (2.0-8.3); Neutrophils Percent Auto 57.6 % (45-73); Platelet Count 301 X10*3/uL (160-400); Red Blood Count 5.39 X10*6/uL (4.60-5.80); Red Cell Distribution Width 13.5 % (11.0-16.0); White Blood Count 6.3 X10*3/uL (4.8-10.8)
[2023-11-23 09:10] LABS: Estimated Average Glucose 94 mg/dL; Hemoglobin A1c % 4.9 % (<6.0)
[2023-11-23 09:51] LABS: Alanine Aminotransferase 31 U/L (0-40); Albumin Level 3.9 g/dL (3.5-5.0); Alkaline Phosphatase 80 U/L (39-117); Anion Gap 12 (12-20); Aspartate Amino Transferase 28 U/L (5-37); Bilirubin Total 0.4 mg/dL (0.0-1.0); Blood Urea Nitrogen 11 mg/dL (9-16); C Reactive Protein 1.57 mg/dL (< or = 0.50); Calcium 8.8 mg/dL (8.4-10.2); Carbon Dioxide 24 mmol/L (22-29); Chloride 110 mmol/L (96-108); Cholesterol 124 mg/dL (<200); Estimated Glomerular Filt Rate > 60; Glucose Random 109 mg/dL (60-115); HDL Cholesterol 31 mg/dL (>40); Iron 87 mcg/dL (45-160); LDL Cholesterol Calculated 83 mg/dL (<100); Percent Iron Saturation 36 % (15-50); Sodium 142 mmol/L (135-145); Total Iron Binding Capacity 243 mcg/dL (228-428); Triglycerides 54 mg/dL (<150); Unsaturated Iron Binding 156 ug/dL
[2023-11-23 10:04] LABS: HIV Num 1 0.05 S/CO (0.00-0.99)
[2023-11-23 10:05] LABS: HIV AB/AG Nonreactive (Nonreactive); Syphilis Screen Nonreactive (Nonreactive)
[2023-11-23 10:07] LABS: Ferritin 178 ng/mL (20-250); Insulin 23 uU/mL (2-29); TSH reflex Free T4 0.83 uIU/mL (0.32-4.0); Vitamin D 25-OH Total 16.5 ng/mL (>30)
[2023-11-23 10:19] LABS: Folate 12.2 ng/mL (> or = 4.0); Vitamin B12 421 pg/mL (200-900)
[2023-11-23 10:37] LABS: CT PCR NOT DETECTED (Not Detect.); NG PCR NOT DETECTED (Not Detect.)
[2023-11-25 18:28] LABS: Zinc 67 mcg/dL (60-130)
[2023-11-26 17:22] LABS: Vitamin A 34 mcg/dL (38-98)
[2023-11-28 10:48] LABS: Vitamin B1 10 nmol/L (8-30)
== END 2023-11-23 07:33 | disposition home or self-care (01) ==
LOC: HO.XRAY 07:32
PROVIDERS: Absent Provider Surgery; PCP Physician Assistant; Visit Provider Physician Assistant
DX: Z11.4 Encounter for screening for human immunodeficiency virus [HIV] (principal); E66.01 Morbid (severe) obesity due to excess calories; I10 Essential (primary) hypertension; Z20.2 Contact with and (suspected) exposure to infections with a predominantly sexual mode of transmission
CPT/HCPCS: 0353U; 36415; 71046; 80053; 80061; 82306; 82607; 82728; 82746; 83036; 83525; 83540; 84425; 84443; 84590; 84630; 85025; 86140; 86780; 87389; 93005

== ENCOUNTER → 2023-11-23 08:24 | Outpatient (BNV) | payer OTHER, SELFPAY | PROVIDERS: Absent Provider Surgery; PCP Physician Assistant; Visit Provider Internal Medicine Cardiovascular Disease | DX: R00.1 Bradycardia, unspecified (principal) | CPT/HCPCS: 93010 ==

== ENCOUNTER 2023-12-02 14:22 | Outpatient (AMB) | payer OTHER, SELFPAY ==
--- NOTE | 2023-12-02 14:04 | MHC.AMNUTRGE ---
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 His cooks dinner and is very supportive. puts all tempting food in the fridge before he gets home. dinner meal is about 3oz protein (only getting 6 forkfulls ) Takes care of his grandmother, so cooks all her meals. 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 He has a lot of questions regarding protein and muscle mass. Lost 60# preop and 20# post op . after surgery , he saw the RD 2x, then because of covid stopped going to the gym, and priority was to get as much food in the house as possible . [place] that he never had the restriction post op. [facility] online classes: none Dietary counseling reduction Who buys your food self Who prepares/cooks your food self Meal frequency regular: breakfast (eggs, homefries, etc), lunch (2pm lunch chicken ) and dinner and irregular: snacks (after dinner sometimes) Lifestyle Food frequency Fruit: several times weekly, Vegetables: several times weekly, Grains/pasta/breads/cereal (carbs): daily, Meats/poultry/fish (protein): daily, Meat substitutes/nuts/seeds/legumes: daily, Water: daily, Soda: daily (diet coke ), Coffee: daily and Sports/energy drinks: daily ([place]) Diagnosis Nutrition problem #1 overweight/obesity As related to (etiology) #1 excess energy intake and physical inactivity As evidenced by (sign/symptom) #1 high BMI Monitoring/Goals Nutrition problem monitoring total energy intake, level of knowledge/skill, total PRO intake, total CHO intake and weight Outcome progress progressing Learning/Education Readiness to learn excellent Stages of change action Educational materials provided Yes Most Recent Diabetes Results: Cholesterol 124 mg/dL (<200) 11/23/23 HDL Cholesterol 31 mg/dL (>40) L 11/23/23 Triglycerides 54 mg/dL (<150) 11/23/23 Creatinine 0.74 mg/dL (0.5-1.4) 11/23/23 Blood Urea Nitrogen 11 mg/dL (9-16) 11/23/23 Sodium 142 mmol/L (135-145) 11/23/23 Potassium 4.0 mmol/L (3.3-5.1) 11/23/23 Chloride 110 mmol/L (96-108) H 11/23/23 Carbon Dioxide 24 mmol/L (22-29) 11/23/23 Calcium 8.8 mg/dL (8.4-10.2) 11/23/23 AST 28 U/L (5-37) 11/23/23 ALT 31 U/L (0-40) 11/23/23 Total Protein 7.0 g/dL (6.5-8.0) 11/23/23 Albumin 3.9 g/dL (3.5-5.0) 11/23/23 PFSH Medical History (Updated 11/27/23 @ 23:30 by Brady Wiseman MD) Morbid obesity Surgical History (Updated 11/05/23 @ 13:23 by Margie Machuca CMA) Hx of vasectomy History of gastrointestinal surgery Social History Housing: Apartment Alcohol intake: never Patient Tobacco Use Status: Current someday Tobacco user Tobacco use type: Cigar e-Cigarette/Vaping Use: Never Used Second Hand Smoke Exposure: No service: No Current occupational status: employed 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 Cognitive needs: No Hearing needs: No Vision needs: No Assessment & Plan Assessment & Plan (1) Morbid obesity: Code(s): E66.01 - Morbid (severe) obesity due to excess calories Plan will likely be cleared once he completes online classes Telehealth Telehealth Location of provider rendering services: practice address Location of patient: address on file Patient Identification confirmed using: Name, : Yes Telehealth method: video Patient verbally consented to treatment: Yes Patient verbally consented to billing insurance company: Yes Patient informed of any privacy concerns related to visit: Yes Minutes spent on Phone/Video with Pt.: 45 Coding Level of Care Code Nutr Indiv Intake (43546) Diagnoses Morbid obesity E66.01 Time Spent (min) 45
== END 2023-12-02 14:44 | disposition home or self-care (01) ==
LOC: HO.HBS 14:23
PROVIDERS: PCP Physician Assistant; Visit Provider Dietitian, Registered
DX: E66.01 Morbid (severe) obesity due to excess calories (principal)

== ENCOUNTER → 2023-12-02 14:22 | Outpatient (BNVA) | payer OTHER, SELFPAY | PROVIDERS: PCP Physician Assistant; Visit Provider Dietitian, Registered | DX: E66.01 Morbid (severe) obesity due to excess calories (principal); Z98.84 Bariatric surgery status; Z71.3 Dietary counseling and surveillance | CPT/HCPCS: 97802 ==

== ENCOUNTER 2023-12-09 14:12 | Outpatient (AMB) | payer OTHER, SELFPAY ==
--- NOTE | 2023-12-09 14:06 | A.OFFWM_ITS ---
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 Pt denied any history of mental health issues or treatment, and no hx of problems with drugs or alcohol. He has no legal problems and no hx of being admitted psychiatrically. Presenting Concerns Referral Source provider Reason for referral weight loss surgery evaluation Precipitating Event obesity Living Situation Current Living Situation Own At risk of losing current housing? No Satisfied with current living situation? Yes Comments Patient lives with his and three kids ages 14, 12, and 10. Food/Weight/Diet Expectations of change weight loss and maintenance History/Relationship with food Pt stated that he would snack, eat the wrong foods, lack of preparation. History/Relationship with weight Pt stated that he struggled to reach his goals after his surgery and then the pandemic happened. History/Relationship with dieting 2019 LSG at [facility] Binge Eating Do you frequently eat large amounts of food in short periods of time, not feeling physically hungry? No Do you feel out of control when you eat a large amount of food in a short period of time? No Do you eat large amounts of food rapidly and typically alone? No Night Eating Do you wake up at least once during the night to eat? No If you wake up in the night, do you find that it is necessary to eat something in order to fall back asleep? No Do you have little or no appetite in the morning and feel very hungry in the evening, often overeating between dinner and when you go to bed? No Social History Family history and relationship Patient moved here from [place] when he was 15 years old. His mother and sister both had weight loss surgery. 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 none Education Highest grade completed CDL Preferred learning style Auditory, Verbal, Written, Learn by doing and Visual Currently enrolled in educational program? No Interested in further educational program? 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 No Financial Situation Describe current financial situation Occasional struggle Financial assistance? None Service Service? No Mental Health and Addiction Treatment Current/Past substance abuse? No Current/Past addictive behavior concerns? No Medical and Physical Health Summary Physical exam in the last year? Yes Pain Screening Current pain? No Pain in the last few months? No Medications Is the patient compliant with medications? Yes Does the patient have Hilario Guardian in place? Not applicable Does the patient use complimentary health approaches? No Trauma/Abuse History History of trauma? No Questionnaires PHQ-9 Over the last 2 weeks, how often have you been bothered by any of the following problems? 1. Little interest or pleasure in doing things: not at all 2. Feeling down, depressed, or hopeless: not at all 3. Trouble falling or staying asleep, or sleeping too much: more than half the days 4. Feeling tired or having little energy: several days 5. Poor appetite or overeating: not at all 6. Feeling bad about yourself - or that you are a failure or have let yourself or your family down: not at all 7. Trouble concentrating on things, such as reading the newspaper or watching t elevision: not at all 8. Moving or speaking so slowly that other people could have noticed. Or the opposite - being so fidgety or restless that you have been moving around a lot more than usual: not at all 9. Thoughts that you would be better off or of hurting yourself in some way: not at all Total score: 3 Source: Developed by Drs. Karthik Omer, Carlita Andrade, James Díaz and colleagues, with an educational mari from [employer]. Binge Eating Scale Group 1 A. I don't feel self-conscious about my wt. or body size when I'm with others. B. I feel concerned about how I look to others, but it normally does not make me fell disappointed with myself C. I do get self-conscious about my appearance and wt. which makes me feel disappointed in myself. D. I feel very self-conscious about my wt. and frequently I feel intense shame and disgust for myself. I try to avoid social contacts because of my self- consciousness. Response Group 1: B Group 2 A. I don't have any difficulty eating slowly in the proper manner. B. Although I seem to gobble down foods, I don't end up feeling stuffed because of eating to much. C. At times, I tend to eat quickly and then, I feel uncomfortably full afterwards. D. I have the habit of bolting down my food, without really chewing it. When this happens I usually feel uncomfortably stuffed because I've eaten to much. Response Group 2: A Group 3 A. I feel capable to control my eating urges when I want to. B. I feel like I have failed to control my eating more than the average person. C. I feel utterly helpless when it comes to feeling in control of my eating urges. D. Because I feel so helpless about controlling my eating I have become very desperate about trying to get control. Response Group 3: A Group 4 A. I don't have the habit of eating when I'm bored. B. I sometimes eat when I'm bored, but often I'm able to get busy and get my mind off food. C. I have a regular habit of eating when I'm bored, but occasionally, I can use some other activity to get my mind off eating. D. I have a strong habit of eating when I'm bored. Nothing seems to help me breath the habit. Response Group 4: A Group 5 A. I'm usually physically hungry when I eat something. B. Occasionally, I eat something on impulse even though I really am not hungry. C. I have the regular habit of eating foods, that I might not really enjoy, to satisfy a hungry feeling even though physically, I don't need the food. D. Although I'm not physically hungry, I get a hungry feeling in my mouth that only seems to be satisfied when I eat a food, like sandwich, that fills my mouth. Sometimes, when I eat the food to satisfy my mouth hunger, I then spit the food out so I won't gain weight. Response Group 5: A Group 6 A. I don't feel any guilt or self-hate after I overeat. B. After I overeat, occasionally I feel guilt or self-hate. C. Almost all the time I experience strong guilt or self-hate after I overeat. Response Group 6: A Group 7 A. I don't lose total control of my eating when dieting even after periods when I overeat. B. Sometimes when I eat a forbidden food on a diet, I feel like I blew it and eat even more. C. Frequently, I have the habit of saying to myself, I've blown it now, why not go all the way, when I overeat on a diet. When that happens I eat more. D. I have a regular habit of starting a strict diets for myself but I break the diets by going on an eating binge. My life seems to be either a feast or famine. Response Group 7: A Group 8 A. I rarely eat so much food that I feel uncomfortably stuffed afterwards. B. Usually about once a month, I each such a quantity of food, I end up feeling very stuffed. C. I have regular periods during the month when I eat large amounts of food, e ither at mealtime or at snacks. D. I eat so much food that I regularly feel quite uncomfortable after eating and sometimes a bit nauseous. Response Group 8: A Group 9 A. My level of calorie intake does not go up very high or go down very low on a regular basis. B. Sometimes after I overeat, I will try to reduce my caloric intake to almost nothing to compensate for the excess calories I've eaten. C. I have a regular habit of overeating during the night. It seems that my routine is not to be hungry in the morning but overeat in the evening. D. In my adult years, I have had week-long periods where I practically starve myself. This follows periods when I overeat. It seems I live a life of either feast or famine. Response Group 9: A Group 10 A. I usually am able to stop eating when I want to. I know when enough is enough. B. Every so often, I experience a compulsion to eat which I can't seem to control. C. Frequently, I experience strong urges to eat which I seem unable to control, but at other times I can control my eating urges. D. I feel incapable of controlling urges to eat. I have a fear of not being able to stop eating voluntarily. Response Group 10: A Group 11 A. I don't have any problem stopping eating when I feel full. B. I usually can stop eating when I feel full but occasionally overeat leaving me feeling uncomfortably stuffed. C. I have a problem stopping eating once I start and usually I feel uncomfortably stuffed after I eat a meal. D. Because I have a problem not being able to stop eating when I want, I sometimes have to induce vomiting to relieve my stuffed feeling. Response Group 11: A Group 12 A. I seem to eat just as much when I'm with others, Family social gatherings as when I'm by myself. B. Sometimes, when I'm with other persons, I don't eat as much as I want to eat because I'm self-conscious about my eating. C. Frequently, I eat only a small amount of food when others are present, because I'm very embarrassed about my eating. D. I feel so ashamed about overeating that I pick times to overeat when I know no one will see me. I feel like a closet eater. Response Group 12: A Group 13 A. I eat three meals a day with only an occasional between meal snack. B. I eat 3 meals a day, but I also normally snack between meals. C. When I am snacking heavily, I get in the habit of skipping regular meals. D. There are regular periods when I seem to be continually eating, with no planned meals. Response Group 13: A Group 14 A. I don't think much about trying to control unwanted eating urges. B. At least some of the time, I feel my thoughts are pre-occupied with trying to control my eating urges. C. I feel that frequently I spend much time thinking about how much I ate or about trying not to eat anymore. D. It seems to me that most of my waking hours are pre-occupied by thoughts about eating or not eating. I feel like I'm constantly struggling not to eat. Response Group 14: A Group 15 A. I don't think about food a great deal. B. I have strong craving for food but they last only for brief periods of time. C. I have days when I can't seem to think about anything else but food. D. Most of my days seem to be pre-occupied with thoughts about food. I feel like I live to eat. Response Group 15: A Group 16 A. I usually know whether or not I'm physically hungry. I take the right portion of food to satisfy me. B. Occasionally, I feel uncertain about knowing whether or not I'm physically hungry. A these times it's hard to know how much food I should take to satisfy me. C. Even though I might know how many calories I should eat, I don't have any idea what is a normal amount of food for me. Response Group 16: A Binge Eating Score: 1 Score less than 17 Minimal Risk Score between 18-26 Moderate Risk Score between 27-46 High Risk Assessment & Plan Assessment & Plan (1) Adjustment disorder: Code(s): F43.20 - Adjustment disorder, unspecified (2) Morbid obesity: Code(s): E66.01 - Morbid (severe) obesity due to excess calories Plan Patient has no mental health issues per his report. His biggest barrier could be incorporating healthy lifestyle into his busy life. Doing well with meal plan at this time. He is cleared for surgery when ready. Telehealth Telehealth Location of provider rendering services: other Location of patient: other Patient Identification confirmed using: Name, : Yes Telehealth method: voice only Patient verbally consented to treatment: Yes Patient verbally consented to billing insurance company: Yes Patient informed of any privacy concerns related to visit: Yes Minutes spent on Phone/Video with Pt.: 40 Coding Level of Care Code Tele Psy Diag Eval (22242) Diagnoses Adjustment disorder F43.20 Morbid obesity E66.01 Time Spent (min) 40
== END 2023-12-09 14:27 | disposition home or self-care (01) ==
LOC: HO.HBST 14:12
PROVIDERS: PCP Physician Assistant; Visit Provider Counselor Mental Health
DX: F43.20 Adjustment disorder, unspecified (principal); E66.01 Morbid (severe) obesity due to excess calories
CPT/HCPCS: 90791

== ENCOUNTER 2023-12-11 08:14 | Outpatient (AMB) | payer OTHER, SELFPAY ==
--- NOTE | 2023-12-11 09:10 | A.OFFVIS_ITS ---
Intake VS Expanded 12/11/23 10:15 Height 6 ft 2 in Weight 416 lb 9 oz BMI 53.5 Body Fat % 60.5 Body Fat Mass 252.2 Fat Free Mass 164.7 Visceral Fat Rating 30 Body Water % 28.5 Body Water Mass 118.8 Basal Metabolic Rate/Score 1,981 Intake Visit Reasons: TV Follow Up SWL - 1ST Allergies No Known Allergies Allergy (Verified 11/20/23 15:13) HPI TV Follow Up SWL - 1ST HPI Details Start time: 9.01am, End time: 9.21am ?I spent 15 minutes speaking with the patient on the phone plus an additional 5 minutes reviewing and updating records for a total of 20 minutes HPI Comments History of Present Illness Details Overall weight loss: 9.2lbs, or 2.16% TBWL Is doing 2 Celebrate Rebuild protein shakes (2 scoops in almond milk), 3 Celebrate protein bars and one meal (6 forks of protein and 10 forks of vegetables) Exercise: walking outside [facility] Medical History (Updated 12/09/23 @ 14:25 by Prudence Osorio) Morbid obesity Surgical History (Updated 11/05/23 @ 13:23 by Margie Machuca CMA) Hx of vasectomy History of gastrointestinal surgery Social History Housing: Apartment Alcohol intake: never Patient Tobacco Use Status: Current someday Tobacco user Tobacco use type: Cigar e-Cigarette/Vaping Use: Never Used Second Hand Smoke Exposure: No service: No Current occupational status: employed Current occupation: [employer] Cognitive needs: No Hearing needs: No Vision needs: No Assessment & Plan Assessment & Plan (1) Morbid obesity: Code(s): E66.01 - Morbid (severe) obesity due to excess calories Plan: 1. Continue same nutritional plan of 2 Celebrate Rebuild protein shakes (2 scoops in almond milk), 3 Celebrate protein bars and one meal (6 forks of protein and 10 forks of vegetables). 2. . Start treadmill with an incline of 4.0 and speed of 3.5. Increase incline by 1 every 3 min to a max incline of 10.0, stay 3min at 10.0 and then return to 4.0 and repeat same steps until calorie goal is met. Goal is to burn 2000 calories per week on exercise, which means either 300 calories daily, or 400 calories 5 days per week, or 500 calories 4 days per week, or 650 calories 3 days per week. 3. Continue to send weight measurements weekly on Fridays. 4. To be scheduled for EGD. The possibility of biopsies was discussed. Patient needs to avoid use of NSAIDs and aspirin for 1 week prior to EGD. Risks of perforation and? bleeding was discussed with the patient. This will be an outpatient procedure with IV sedation. Telehealth Telehealth Location of provider rendering services: practice address Location of patient: address on file Patient Identification confirmed using: Name, : Yes Telehealth method: voice only Patient verbally consented to treatment: Yes Patient verbally consented to billing insurance company: Yes Patient informed of any privacy concerns related to visit: Yes Minutes spent on Phone/Video with Pt.: 20 Coding Level of Care Code Tele Est Pt Level 3 (48948) Diagnoses Morbid obesity E66.01 Time Spent (min) 20
[2023-12-11 10:15] VITALS: BMI 53.5
== END 2023-12-11 10:23 | disposition home or self-care (01) ==
PROVIDERS: PCP Physician Assistant; Visit Provider Surgery
DX: E66.01 Morbid (severe) obesity due to excess calories (principal)
CPT/HCPCS: 99213

== ENCOUNTER → 2023-12-11 08:14 | Outpatient (BNVA) | payer OTHER, SELFPAY | PROVIDERS: PCP Physician Assistant; Visit Provider Surgery ==

== ENCOUNTER 2023-12-17 08:36 | Day surgery (SDC) | payer OTHER, SELFPAY ==
[2023-12-07 07:23] VITALS: BMI 54.7
--- NOTE | 2023-12-08 10:05 | HO.ANESPROP2 ---
HPI - Anesthesia Eval Consult details Narrative: 38yo M for Upper Endoscopy PMFSH Active Problems Active Problems: All Active Problems (Updated 11/27/23 @ 23:30 by Brady Wiseman MD) Vitamin A deficiency (Acute) Vitamin B12 deficiency (Acute) Vitamin D deficiency (Acute) Morbid obesity (Acute) HTN (hypertension) (Acute) Annual physical exam (Acute) Chalazion of left eyelid (Acute) Obese (Acute) Fertility testing (Acute) Screening for STD (sexually transmitted disease) (Acute) Screening for hypothyroidism (Acute) Screening for hypercholesterolemia (Acute) Screening for diabetes mellitus (DM) (Acute) Past Medical History Medical History Morbid obesity Surgical History Surgical History Hx of vasectomy History of gastrointestinal surgery Social History Social History Housing: Apartment Alcohol intake: never Patient Tobacco Use Status: Current someday Tobacco user Tobacco use type: Cigar e-Cigarette/Vaping Use: Never Used Second Hand Smoke Exposure: No service: No Current occupational status: employed 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 Rate : 057 BPM Atrial Rate : 057 BPM P-R Int : 164 ms QRS Dur : 086 ms QT Int : 420 ms P-R-T Axes : 006 -03 004 degrees QTc Int : 408 ms Sinus bradycardia with sinus arrhythmia Otherwise normal ECG No previous ECGs available Assessment and Plan Assessment Anesthesia Assessment: Chart Reviewed
[2023-12-17 09:22] VITALS: BMI 53.5
[2023-12-17 09:29] VITALS: BP 132/77; PULSE 47; RESP 18; TEMP 36.8; O2SAT 98
--- NOTE | 2023-12-17 09:42 | P.CONAN_ITS ---
[facility] Active Problems Active Problems: All Active Problems (Updated 12/09/23 @ 14:25 by Prudence Osorio) Adjustment disorder (Acute) Vitamin A deficiency (Acute) Vitamin B12 deficiency (Acute) Vitamin D deficiency (Acute) Morbid obesity (Acute) HTN (hypertension) (Acute) Annual physical exam (Acute) Chalazion of left eyelid (Acute) Obese (Acute) Fertility testing (Acute) Screening for STD (sexually transmitted disease) (Acute) Screening for hypothyroidism (Acute) Screening for hypercholesterolemia (Acute) Screening for diabetes mellitus (DM) (Acute) Past Medical History Medical History Morbid obesity Family History Family history of problems with anesthesia: No Surgical History Surgical History Hx of vasectomy History of gastrointestinal surgery History of Problems with Anesthesia: No Social History Social History Housing: Apartment Alcohol intake: never Patient Tobacco Use Status: Current someday Tobacco user Tobacco use type: Cigar e-Cigarette/Vaping Use: Never Used Second Hand Smoke Exposure: No Use of substances other than those prescribed or required for medical reasons: No Are you DNR?: No Advance Directives: No Advance Directives Information Provided: Yes service: No Current occupational status: employed 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 Cognitive needs: No Hearing needs: No Vision needs: No Meds Allergies Allergy/AdvReac Type Severity Reaction Status Date / Time No Known Allergies Allergy Verified 12/17/23 09:18 Active Medications: Current Medications Lactated Ringer's (Lr) 1,000 mls @ 80 mls/hr IVCONT .[id number] HERMELINDO Lactated Ringer's (Lr) 1,000 mls @ 80 mls/hr IVCONT .[id number] HERMELINDO Ondansetron HCl (Ondansetron Hcl 4 Mg/2 Ml Vial) 4 mg IVPUSH ONCE PRN PRN Reason: Nausea and Vomiting Exam Height,Weight and Vital Signs: Height 6 ft 3 in Weight 194.138 kg Last Vital Signs Temp 98.2 F 12/17/23 09:29 Pulse 47 L 12/17/23 09:29 Resp 18 12/17/23 09:29 BP 132/77 12/17/23 09:29 Pulse Ox 98 12/17/23 09:29 O2 Del Method Room Air 12/17/23 09:29 Airway Mallampati Class: III TM Dist: >3cm Neck ROM: Full Loose/Missing/Broken Teeth: No Heart: rrr Lungs: clear Assessment and Plan Final Anesthetic Review Family History of Problems with Anesthesia: No History of Problems with Anesthesia: No NPO: Yes ASA Class: II Final Preanesthetic Review: No Changes in Pt Med Stat, Meds/Allgs Chart Reviewed, Consent Obtained/Reviewed and Anes Risks/Benef Reviewed Patient Risk: Intermediate Procedure Risk: Low
[2023-12-17] MEDS: Lactated Ringers 1,000 ML 80 ML IVCONT (09:51)
--- NOTE | 2023-12-17 10:08 | MHC.SHP ---
Pre-Procedural Eval Section A - 24 Hr Update-Section A only Date of Service: 12/17/23 The patient is an INPATIENT: No The patient has been examined within 24 hours of the surgical procedure. The History & Physical has been completed within 30 days and I have reviewed it.: Yes Section B - Complete if H&P > 30 days Chief Complaint: Morbid (severe) obesity due to excess calories Relevant Family History (Specify if Yes): No Relevant Social History: None Present Medications: None Medical History: No relevant PMH History of Previous Operations: No relevant previous surgery Allergies: Allergies Allergy/AdvReac Type Severity Reaction Status Date / Time No Known Allergies Allergy Verified 12/17/23 09:18 Review of Systems Sugical H&P ROS: Negative: Constitution, Cardiovascular, Respiratory, Neurological, Psychiatric, Hem-Onc, Allergic/Immunologic, Gastrointestinal, Genitourinary, Musculoskeletal, Integumentary, Endocrine and Eyes/Ears/Nose/Throat Exam Surgical H&P Exam: Normal: HEENT, Normal: Heart, Normal: Lungs, Normal: Extremities, Normal: Abdomen, Normal: Skin and Normal: Neurological Plan Diagnosis/Plan: Unchanged (EGD to assess stomach's anatomy. Risks and complications of bleeding and perforation were discussed with patient.) I have reviewed the history and physical and performed a pertinent physical examination on my patient. No changes have occurred unless specified. Time Spent With Patient Time: Total time managing care of this patient today ____ minutes.
--- NOTE | 2023-12-17 10:32 | P.BOP_ITS ---
Brief Operative Note Date of Service: 12/17/23 Pre-op diagnosis: Morbid obesity Post-op diagnosis: same Procedure: PROCEDURE DATE: 12/17/2023 PREOPERATIVE DIAGNOSIS: GERD POSTOPERATIVE DIAGNOSIS: ?Same as above. Normal endoscopy PROCEDURE: Xderpanf-rtceiz-kwvsrfovhuph with biopsies Surgeon: Destinee Wiseman M.D.. Ph.D. Sales And Marketing Analyst: None ? Anesthesia: IV sedation Estimated blood loss: ?Minimal FINDINGS AND PROCEDURE: ? OPERATIVE INDICATIONS: ?The patient is a 38 year old female known to me who is interested in bariatric surgery. Based on this information I recommended an upper endoscopy to evaluate the patient's symptoms. Risks and complications of the surgery were discussed with the patient in advance particularly the possibility of perforation or bleeding that may require surgical intervention. The patient understood the risks and was in agreement with the plan. ? PROCEDURE: After informed consent was obtained by the patient, the patient was ?transferred to the Operating Room and was placed in the supine position.? After successful induction of IV sedation, a mouth block was inserted and the patient was placed in the left lateral decubitus position. An upper endoscopy was performed next, the oropharynx and esophagus appeared within the normal limits. There was no hiatal hernia. The z-line was smooth. Two biopsies were obtained from the distal esophagus 2-3 cm proximal to the GE junction and two additional biopsies from the GE junction. The stomach was entered and it appeared to be of normal size. There was mild gastritis at distal antrum. There was no stricture or ulcer. A biopsy was obtained from the distal antrum and one from gastric fundus. No significant bleeding was noted from any of the biopsy sites. The scope was then advanced into the duodenum which appeared to be normal as well. At that point the duodenum ?and the stomach were decompressed and the scope was withdrawn from the patient's mouth. The patient extubated and was transferred in stable condition to the Recovery Room for further care. I was present and performed all steps of the procedure. There were no residents to assist with this case. Radu Wiseman M.D., Ph.D. Surgeon: Brady Wiseman MD Anesthesia: MAC Was an Sales And Marketing Analyst used for this Procedure?: No Estimated blood loss (mL): 0 IV fluids (mL): 400 Urine output (mL): 0 Pathology: other (1) antrum x1, 2) gastric fundus x1, 3) GE junction x2, 4) distal esophagus x2) Condition: stable Disposition: PACU
[2023-12-17 10:35] VITALS: BP 124/93; PULSE 95; RESP 18; TEMP 36.6; O2SAT 95
[2023-12-17 10:50] VITALS: BP 126/90; PULSE 71; RESP 16; O2SAT 98
[2023-12-17 11:05] VITALS: BP 123/81; PULSE 62; RESP 15; TEMP 36.3; O2SAT 100
== END 2023-12-17 11:24 | disposition home or self-care (01) ==
PROVIDERS: PCP Physician Assistant; Visit Provider Surgery
PROC: 0DJ08ZZ Inspection of Upper Intestinal Tract, Via Natural or Artificial Opening Endoscopic (ICD-10-PCS; CPT 43235; principal; 2023-12-17 10:10)
DX: E66.01 Morbid (severe) obesity due to excess calories (principal); Z68.43 Body mass index [BMI] 50.0-59.9, adult; K21.9 Gastro-esophageal reflux disease without esophagitis; K29.60 Other gastritis without bleeding; Z98.84 Bariatric surgery status; Z98.52 Vasectomy status; F17.290 Nicotine dependence, other tobacco product, uncomplicated
CPT/HCPCS: 43239; 88305; 88313; 88342; J2704

== ENCOUNTER → 2023-12-17 08:36 | Outpatient (BNV) | payer OTHER, SELFPAY | PROVIDERS: PCP Physician Assistant; Visit Provider Surgery | DX: K21.9 Gastro-esophageal reflux disease without esophagitis (principal); K29.70 Gastritis, unspecified, without bleeding | CPT/HCPCS: 43239 ==

== ENCOUNTER 2023-12-30 08:22 | Outpatient (REF) | payer OTHER, SELFPAY ==
--- NOTE | ~2023-12-30 | FL_ITS ---
EXAMINATION: XR FLUOROSCOPY UPPER GI WITH AIR CLINICAL INFORMATION: History of gastric sleeve. Preop evaluation COMPARISON: None TECHNIQUE: Fluoroscopic air contrast upper GI examination was performed utilizing standard techniques with thin and thick barium and effervescent granules. Numerous spot images were obtained. FINDINGS: Dual and single contrast images of the esophagus demonstrate normal caliber, contour, and mucosal pattern. No evidence of stricture, mass, or ulcerations identified. Esophageal peristalsis was normal. No evidence of hiatus hernia identified. A small amount of gastroesophageal reflux is seen in the distal esophagus. Dual contrast and single contrast images of the stomach demonstrated a contour consistent with prior history of sleeve gastrectomy. Mucosal pattern appears normal without evidence of mass, ulceration, or other abnormality. Contrast freely passed into the gastric antrum and duodenal bulb without delay. Single and air-contrast images of the duodenal bulb demonstrate no abnormality. The duodenal sweep has a normal appearance, course, and mucosal fold appearance. The imaged proximal jejunum has a normal fold pattern and caliber. FLUOROSCOPY TIME: 3 minutes 6 seconds Number of Spot Images: 14 Number of Cine: 7 DOSE AREA PRODUCT: 2648 uGy-m2 (microgray-meter squared) FL/FL upper GI w air IMPRESSION: 1. Postsurgical changes consist with prior history of sleeve gastrectomy. 2. Mild gastroesophageal reflux This procedure was performed by Agustin Coley PA-C, and supervised by Dr. Servin
--- NOTE | ~2023-12-30 | US_ITS ---
EXAMINATION: US COMPLETE ABDOMEN WITH LIVER ELASTOGRAPHY CLINICAL INFORMATION: Morbid obesity. COMPARISON: CT abdomen and pelvis dated 08/05/2013. TECHNIQUE: Real-time imaging of the abdominal viscera. Noninvasive ultrasound liver fibrosis assessment is performed using Cody ElastPQ point quantification shear wave elastography (2D-SWE) with a C5-2 MHz transducer. Multiple elastography samples are obtained. FINDINGS: PANCREAS: Poorly visualized due to overlapping bowel gas and body habitus. ABDOMINAL AORTA: The proximal segment is obscured by overlapping bowel gas. The middle and distal aortic segments are normal in caliber. INFERIOR VENA CAVA: Visualized portions are normal. LIVER: The liver demonstrates normal contour and echogenicity. No focal lesion or intrahepatic biliary duct dilatation. The right lobe measures 19.4 cm in length. The left lobe measures 11.1 cm in length. Portal flow is towards the liver (hepatopetal). Shear wave liver elastography median stiffness is 1.65 m/s (reference: normal median stiffness is 1.3 m/s or less). IQR/median stiffness to assess sampling precision is 0.28 (reference: good quality data set is IQR/median stiffness of 0.15 or less). GALLBLADDER: There are gallstones, without biliary sludge, polyps, wall thickening or pericholecystic fluid. COMMON BILE DUCT: Normal in caliber measuring 0.5 cm in diameter. RIGHT KIDNEY: Normal. No hydronephrosis. No renal calculi or focal parenchymal lesions. The kidney measures 12.4 cm in maximum dimension. LEFT KIDNEY: At the lower pole of the left kidney, a 7 mm nonobstructing calculus is seen, with twinkle artifact. No hydronephrosis. No renal calculi or focal parenchymal lesions. The kidney measures 11.5 cm in maximum dimension. SPLEEN: No focal finding. The spleen measures 13.3 cm in maximum dimension. FREE FLUID: None. US/US abdomen comp w elastography IMPRESSION: 1. There is hepatomegaly. 2. Liver elastography: Although measurements appear to rule out compensated advanced chronic liver disease, there is statistical variability of the sampling which decreases accuracy. 3. There is cholelithiasis. 4. A 7 mm nonobstructing left renal lower pole calculus is seen. 5. Technically limited ultrasound examination, in particular of the pancreas and abdominal great vessels. REFERENCE: Society of Radiologists in Ultrasound Liver Stiffness Thresholds (2020): LIVER STIFFNESS THRESHOLDS: *Liver Stiffness equal or less than 1.3 m/s: High probability of being normal. *Liver Stiffness less than 1.7 m/s: In the absence of other known clinical signs, rules out compensated advanced chronic liver disease. *Liver Stiffness 1.7-2.1 m/s: Suggestive of compensated advanced chronic liver disease but need further test for confirmation. *Liver Stiffness over 2.1 m/s: Rules in compensated advanced chronic liver disease. *Liver Stiffness over 2.4 m/s: Suggestive of clinically significant portal hypertension. QUALITY OF DATA SET: *IQR/Median value equal or less than 0.15 implies a quality data set. *IQR/Median value over 0.15 implies a poor quality data set. SIGNIFICANT CHANGE FROM PRIOR EXAM: Significant change if liver stiffness measurement is 10% or greater from prior exam. OTHER CONSIDERATIONS: The stage of liver fibrosis may be overestimated in the setting of acute hepatitis, liver inflammation, elevated liver function tests, hepatic vascular congestion, obstructive cholestasis, non-fasting state, and infiltrative diseases such as amyloidosis and lymphoma. In some patients with NAFLD, the liver stiffness thresholds for compensated advanced chronic liver disease may be lower. In causes other than viral hepatitis and NAFLD, liver stiffness thresholds are not well established.
== END 2023-12-30 08:23 | disposition home or self-care (01) ==
LOC: HO.US 08:22
PROVIDERS: PCP Physician Assistant; Visit Provider Surgery
DX: E66.01 Morbid (severe) obesity due to excess calories (principal); I10 Essential (primary) hypertension
CPT/HCPCS: 74246; 76700; 76981

== ENCOUNTER → 2023-12-30 08:24 | Outpatient (BNV) | payer OTHER, SELFPAY | PROVIDERS: PCP Physician Assistant; Visit Provider Physician Assistant Surgical | DX: E66.01 Morbid (severe) obesity due to excess calories (principal); Z01.818 Encounter for other preprocedural examination | CPT/HCPCS: 74246 ==

== ENCOUNTER 2024-01-01 08:20 | Outpatient (AMB) | payer OTHER, SELFPAY ==
--- NOTE | 2024-01-01 13:01 | A.OFFVIS_ITS ---
Intake VS Expanded 01/01/24 13:08 Height 6 ft 3 in Weight 408 lb 7 oz BMI 51.0 Body Fat % 59 Body Fat Mass 241.1 Fat Free Mass 233.7 Visceral Fat Rating 30 Body Water % 29.6 Body Water Mass 120.9 Basal Metabolic Rate/Score 2,011 Intake Visit Reasons: TV Follow Up SWL Allergies No Known Allergies Allergy (Verified 12/17/23 09:18) HPI TV Follow Up SWL HPI Details Start time: 12.53pm, End time: 1.13pm ?I spent 15 minutes speaking with the patient on the phone plus an additional 5 minutes reviewing and updating records for a total of 20 minutes HPI Comments History of Present Illness Details Overall weight loss: 17.4lbs, or 4.08% TBWL Is doing 2 Celebrate Rebuild protein shakes (two scoop each in almond milk), 3 Celebrate protein bars and one meal (6 forks of meat and 6 forks of salad or vegetables) Exercise: is doing treadmill for 400 calories 4 days per week [facility] Medical History (Updated 01/01/24 @ 13:06 by Brady Wiseman MD) Morbid obesity Surgical History Hx of vasectomy History of gastrointestinal surgery Social History Housing: Apartment Alcohol intake: never Patient Tobacco Use Status: Current someday Tobacco user Tobacco use type: Cigar e-Cigarette/Vaping Use: Never Used Second Hand Smoke Exposure: No service: No Current occupational status: employed 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 Continue same nutritional plan of 2 Celebrate Rebuild protein shakes (two scoop each in almond milk), 3 Celebrate protein bars and one meal (6 forks of meat and 6 forks of salad or vegetables) 2. Exercise: continue treadmill but increase either to 500 calories 4 days per week, or 400 calories for 5 days per week 3. Continue to send me weight measurements weekly on Fridays Medications: New pantoprazole 40 mg PO DAILY 90 tabs 0RF K20.90 - Esophagitis, unspecified without bleeding Telehealth Telehealth Location of provider rendering services: practice address Location of patient: address on file Patient Identification confirmed using: Name, : Yes Telehealth method: voice only Patient verbally consented to treatment: Yes Patient verbally consented to billing insurance company: Yes Patient informed of any privacy concerns related to visit: Yes Minutes spent on Phone/Video with Pt.: 20 Coding Level of Care Code Tele Est Pt Level 3 (49212) Diagnoses Morbid obesity E66.01 Time Spent (min) 20
[2024-01-01 13:08] VITALS: BMI 51.0
== END 2024-01-01 13:14 | disposition home or self-care (01) ==
LOC: HO.HBS 08:21
PROVIDERS: PCP Physician Assistant; Visit Provider Surgery
DX: E66.01 Morbid (severe) obesity due to excess calories (principal)
CPT/HCPCS: 99213

== ENCOUNTER → 2024-01-01 08:20 | Outpatient (BNVA) | payer OTHER, SELFPAY | PROVIDERS: PCP Physician Assistant; Visit Provider Surgery ==

== ENCOUNTER 2024-01-29 08:04 | Outpatient (AMB) | payer OTHER, SELFPAY ==
--- NOTE | 2024-01-29 13:02 | MHC.OFFVISWM ---
Intake VS Expanded 01/29/24 13:13 Height 6 ft 3 in Weight 404 lb 5 oz BMI 50.5 Body Fat % 58.2 Body Fat Mass 235.4 Fat Free Mass 169.1 Visceral Fat Rating 30 Body Water % 30.2 Body Water Mass 122.1 Basal Metabolic Rate/Score 2,027 Intake Visit Reasons: TV Follow Up SWL Allergies No Known Allergies Allergy (Verified 12/17/23 09:18) HPI TV Follow Up SWL HPI Details Start time: 1pm, End time: 1.20pm ?I spent 15 minutes speaking with the patient on the phone plus an additional 5 minutes reviewing and updating records for a total of 20 minutes HPI Comments History of Present Illness Details Overall weight loss: 21.8lbs, or 5.12% TBWL Is doing 2 Celebrate REBUILD protein shakes (2 scoops in almond milk), 3 Celebrate protein bars, and one meal (6 forks of protein and 6 forks of salad) Exercise: Gym 2/week [facility] Medical History (Updated 01/01/24 @ 13:06 by Brady Wiseman MD) Morbid obesity Surgical History Hx of vasectomy History of gastrointestinal surgery Social History Housing: Apartment Alcohol intake: never Patient Tobacco Use Status: Current someday Tobacco user Tobacco use type: Cigar e-Cigarette/Vaping Use: Never Used Second Hand Smoke Exposure: No service: No Current occupational status: employed 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 Continue same nutritional plan of 2 Celebrate REBUILD protein shakes (2 scoops in almond milk), 3 Celebrate protein bars, and one meal (6 forks of protein and 6 forks of salad) 2. Suggested that he purchases a home staitonary bike with an appropriate weight limit. It will allow him to exercise more frequently and consistently due to his work schedules than the Gym 3. Continue to send me weight measurements weekly on Fridays Telehealth Telehealth Location of provider rendering services: practice address Location of patient: address on file Patient Identification confirmed using: Name, : Yes Telehealth method: voice only Patient verbally consented to treatment: Yes Patient verbally consented to billing insurance company: Yes Patient informed of any privacy concerns related to visit: Yes Minutes spent on Phone/Video with Pt.: 20 Coding Level of Care Code Tele Est Pt Level 3 (25156) Diagnoses Morbid obesity E66.01 Time Spent (min) 20
[2024-01-29 13:13] VITALS: BMI 50.5
== END 2024-01-29 13:19 | disposition home or self-care (01) ==
LOC: HO.HBS 08:04
PROVIDERS: PCP Physician Assistant; Visit Provider Surgery
DX: E66.01 Morbid (severe) obesity due to excess calories (principal)
CPT/HCPCS: 99213

== ENCOUNTER → 2024-01-29 08:04 | Outpatient (BNVA) | payer OTHER, SELFPAY | PROVIDERS: PCP Physician Assistant; Visit Provider Surgery | DX: K20.90 Esophagitis, unspecified without bleeding (principal); E66.01 Morbid (severe) obesity due to excess calories ==

== ENCOUNTER 2024-03-15 15:33 | Outpatient (AMB) | payer OTHER, SELFPAY ==
--- NOTE | 2024-03-15 15:42 | MHC.PC.OV ---
Vital Signs 03/15/24 16:16 Height 6 ft 3 in Weight 416 lb 10.778 oz BMI 52.1 BP 140/90 H Blood Pressure Location Lt brachial Position Sitting Pulse 88 Pulse Source Pulse Oximeter Pulse Oximetry (%) 96 Oxygen Delivery Method Room Air Intake Visit Reasons: PE Intake Note: Patient is here today for a physical. Instrument Tester Required: No Accompanied by: Self / Same As Patient Allergies No Known Allergies Allergy (Verified 03/15/24 16:25) Medication List - Last Reconciled 03/15/24 by Franc Mccauley PA-C No Known Home Meds Tobacco use date assessed: 03/15/24 Dental Screening Dental Screen Date: 03/15/24 Did you have a dental visit in the last 12 months?: No Did you have a dental problem in the last 6 months where you did not have access to dental care?: No Was dental information given to patient?: Patient has dentist HPI PE HPI Details Patient is a 38-year-old male here today for annual physical. Patient has a past medical history significant for obesity. .. Morbid obesity: He is status post gastric sleeve many years ago. He has reestablish care with [facility]. Recently underwent an abdominal ultrasound that did show gallstones. He does not have any particular right upper quadrant abdominal pain. He is concerned about the gallstones and the possibility of cholecystitis. He will ask his bariatric surgeon if he can have an elective cholecystectomy at the same time he gets his bariatric surgery. If not will see a general surgeon to discuss elective cholecystectomy. .. Elevated blood pressure reading: Noted elevated blood pressure reading today in office. He is not interested in starting medications for his blood pressure as he attributes his blood pressure being elevated cause of his weight and would like to work on weight reduction before starting medication. Advised denies any headache, chest discomfort, heart palpitations. 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 Karthik Omer, Carlita Andrade, James Díaz and colleagues, with an educational mari from [employer]. Review of Systems Const Denies body aches, Denies chills, Denies excessive sweating, Denies fatigue, Denies fever(s) and Denies headache(s) Eyes Denies blurry vision ENT Denies dysphagia, Denies vertigo, Denies dizziness, Denies headache(s), Denies hearing loss and Denies tinnitus Card Denies chest pain, Denies chest pain with activity, Denies syncope, Denies irregular heart rhythm and Denies dyspnea Resp Denies chest congestion, Denies cough, Denies hemoptysis, Denies dyspnea and Denies wheezing GI Denies abdominal pain, Denies melena, Denies hematochezia, Denies coffee ground emesis, Denies dysphagia, Denies diarrhea, Denies nausea and Denies vomiting Denies difficulty urinating, Denies dysuria, Denies urinary frequency, Denies urinary hesitancy and Denies urinary urgency Musc Denies arthralgias, Denies limited range of motion, Denies muscle cramps and Denies muscle weakness Skin/Breast Denies rash and Denies skin ulcer Neuro Denies Abnormal speech present, Denies confusion, Denies vertigo, Denies dizziness, Denies syncope, Denies headache(s), Denies memory loss and Denies seizure-like activity Psych Denies anxiety, Denies confusion, Denies depression, Denies memory loss, Denies panic attacks and Denies paranoia Endo Denies excessive sweating, Denies fatigue, Denies flushing, Denies polydipsia and Denies polyuria Aller/Immun Denies wheezing Physical exam (Primary Care) Vital Signs: Last Vital Signs Pulse 88 03/15/24 16:16 BP 140/90 H 03/15/24 16:16 Pulse Ox 96 03/15/24 16:16 Oxygen Delivery Method Room Air 03/15/24 16:16 BMI result Body Mass Index 52.1 BMI Assessment/Plan discussion: High BMI High, discussed plan: lifestyle, weight reduction, dietary and physical activity Tobacco/Smoking Status: Tobacco use Status Tobacco use date assessed 03/15/24 03/15/24 16:23 Patient Tobacco Use Status Current someday Tobacco 03/15/24 15:42 Tobacco use type Cigar 03/15/24 15:42 e-Cigarette/Vaping Use Never Used 03/15/24 15:42 Thrive Assessment: Date of Thrive Assessment Date Thrive assessed 03/18/23 03/15/24 15:42 Const General: cooperative, comfortable, no acute distress, alert and awake; No confusion Orientation/consciousness: oriented to person, oriented to place, patient oriented x3 and No confusion HENMT Head: Yes normocephalic Ears: external ears normal and TM's normal bilaterally Face and sinus: No sinus tenderness Mouth: Normal oral and palatal mucosa present and tongue normal Teeth and gingiva: dentition normal and gingiva normal Throat: Yes posterior oropharynx normal, Yes tonsils normal and Yes uvula midline Eyes Conjunctivae: conjunctivae normal Sclerae: sclerae normal Pupils: Equal, round and reactive pupils present EOM: EOMs intact bilaterally Direct Ophthalmoscopy: No no photophobia Neck Neck: Yes no lymphadenopathy, No tender and Yes no JVD Thyroid: Thyroid normal Carotids: no bruits Chest Chest palpation & inspection: no tenderness Resp Effort & Inspection: normal respiratory effort, no audible wheezes, not labored and no stridor Auscultation: no crackles, no rales, no rhonchi and no wheezes Cardio Jugular venous distension: no JVD Rate: regular rate, not bradycardic and not tachycardic Rhythm: regular rhythm Bruits: no carotid bruits Peripheral pulses: Peripheral pulses 2+ throughout GI Inspection: Yes normal to inspection, No abdominal wall ecchymosis and No visible herniation Palpation (GI): Soft to palpation, nontender, no guarding, not rigid and No hepatosplenomegaly present Auscultation: normoactive bowel sounds General: Yes no CVA tenderness Back/Spine/Pelvis Back: no CVA tenderness and No back tenderness Cervical Spine: cervical ROM normal Thoracic/Lumbar Spine: thoracic and lumbar spine normal to inspection, straight leg raise negative bilaterally, No thoraco-lumbar ROM limited and No lumbar spinal tenderness Skin Lesions: no lesions Rashes: no rashes Wounds: no wounds Neuro General: oriented to person, oriented to place, patient oriented x3, CN's II-XI intact bilaterally and No confusion Cranial nerves: Yes Equal, round and reactive pupils present and Yes Normal accommodation reflex present Cognition (Neuro): normal cognition Speech: No Abnormal speech present Gait exam (Neuro): Normal gait present Motor exam (neuro): 5/5 motor strength present throughout Extrem Right upper extremity: full ROM; no cyanosis Left upper extremity: full ROM; no cyanosis Right lower extremity: no edema Left lower extremity: no edema Psych Appearance: grossly normal Mental Status: mental status grossly normal Affect: normal affect Attitude: cooperative Thought process: Normal thought process present Assessment and Plan Assessment & Plan (1) Annual physical exam: Code(s): Z00.00 - Encounter for general adult medical examination without abnormal findings (2) Obese: Code(s): E66.9 - Obesity, unspecified Qualifiers: Body mass index: BMI 50.0-59.9 Obesity classification: adult class 3 (BMI >= 40) Obesity type: due to excess calories Serious obesity comorbidity presence: without serious comorbidity Qualified Code(s): E66.01 - Morbid (severe) obesity due to excess calories; Z68.43 - Body mass index [BMI] 50.0-59.9, adult Plan: Patient does understand his BMI is well over 50 and will try to work on lifestyle modifications to reduce his weight. He is status post gastric sleeve. Unfortunately has gained his weight back. We have tried to send several weight loss medication though not covered by insurance. . He is now established with [facility] and is considering gastric sleeve surgery. He is concerned about his gallstones and would also like his gallbladder removed. He is interested if his bariatric surgeon can do both underwent surgery due to recovery time. (3) HTN (hypertension): Code(s): I10 - Essential (primary) hypertension Qualifiers: Hypertension type: primary hypertension Qualified Code(s): I10 - Essential (primary) hypertension Plan: Blood pressure reading slightly elevated today in office. Not interested in starting medication at this time will work on reducing his weight as his weight is likely the reason for his higher blood pressures. (4) Gallstone: Code(s): K80.20 - Calculus of gallbladder without cholecystitis without obstruction Qualifiers: Biliary obstruction: without biliary obstruction Cholecystitis presence: without cholecystitis Qualified Code(s): K80.20 - Calculus of gallbladder without cholecystitis without obstruction Plan: As above Orders: Orders Microalbumin, Random (w Creat) 03/15/24 I10 - Essential (primary) hypertension Complete Blood Count no Diff 03/15/24 I10 - Essential (primary) hypertension Comprehensive [place]. Panel Fast 03/15/24 I10 - Essential (primary) hypertension Referrals General Surgery Referral K80.20 - Calculus of gallbladder without cholecystitis without obstruction Coding Level of Care Code Est Pt Prev Care 18-39y([id number]) Diagnoses Annual physical exam Z00.00 Class 3 severe obesity due to excess calories without serious comorbidity with body mass index (BMI) of 50.0 to 59.9 in adult E66.01; Z68.43 Body mass index: BMI 50.0-59.9 Obesity classification: adult class 3 (BMI >= 40) Obesity type: due to excess calories Serious obesity comorbidity presence: without serious comorbidity Primary hypertension I10 Hypertension type: primary hypertension Calculus of gallbladder without cholecystitis without obstruction K80.20 Biliary obstruction: without biliary obstruction Cholecystitis presence: without cholecystitis
[2024-03-15 16:16] VITALS: BP 140/90; PULSE 88; O2SAT 96; BMI 52.1
== END 2024-03-15 16:53 | disposition home or self-care (01) ==
PROVIDERS: PCP Physician Assistant; Visit Provider Physician Assistant
DX: Z00.00 Encounter for general adult medical examination without abnormal findings (principal); E66.01 Morbid (severe) obesity due to excess calories; Z68.43 Body mass index [BMI] 50.0-59.9, adult; I10 Essential (primary) hypertension; K80.20 Calculus of gallbladder without cholecystitis without obstruction
CPT/HCPCS: 99395

== ENCOUNTER 2024-07-01 18:52 | Emergency (ER) | payer OTHER, SELFPAY ==
--- NOTE | ~2024-07-01 | XR_ITS ---
EXAMINATION: XR CHEST CLINICAL INFORMATION: Chest pain COMPARISON: Chest x-ray 11/23/2023 TECHNIQUE: 2 views of the chest were obtained. FINDINGS: No significant abnormality is noted involving the heart, lungs, mediastinum, bony thorax or soft tissues. XR/XR chest 2V IMPRESSION: Unremarkable examination. Electronically signed by: Jenna Lockett MD 07/01/2024 08:39 PM EDT RP
--- NOTE | ~2024-07-01 | CT_ITS ---
EXAMINATION: CT HEAD WITHOUT CONTRAST CLINICAL INFORMATION: Headaches and weakness. COMPARISON: CT report from 12/21/2012 TECHNIQUE: Contiguous axial imaging was performed from the skullbase to vertex without intravenous administration of contrast. This CT examination was performed using dose optimization techniques as appropriate, variously including the following: *Automated exposure control *Adjustment of mA and/or kV according to patient size (this includes techniques or standardized protocols for targeted exams where dose is matched to indication/reason for exam; i.e. extremities or head) *Use of iterative reconstruction technique DLP: 818 mGy-cm. FINDINGS: There is no evidence of acute intracranial hemorrhage or territorial infarction. No abnormal mass effect or midline shift is seen. Ann to white matter differentiation is well preserved. No extra-axial fluid collections are identified. The ventricles are normal in size. There is no abnormal attenuation within the brain parenchyma. The osseous structures and soft tissues are normal. The mastoid air cells and visualized portions of the paranasal sinuses are well aerated. Perforation in the anterior-inferior cartilaginous septum. CT/CT head/brain wo IV con IMPRESSION: No acute intracranial pathology. Electronically signed by: Fadi Arriaga MD 07/01/2024 08:24 PM EDT
--- NOTE | 2024-07-01 18:54 | ECG_ITS ---
Test Reason : headache/cp Blood Pressure : / mmHG Vent. Rate : 075 BPM Atrial Rate : 075 BPM P-R Int : 174 ms QRS Dur : 100 ms QT Int : 398 ms P-R-T Axes : 012 -09 019 degrees QTc Int : 444 ms Normal sinus rhythm Normal ECG When compared with ECG of 23-NOV-2023 08:27, Heart rate has increased Referred By: Generic ED Physician Electronically Signed By:TREVON FUENTES
--- NOTE | 2024-07-01 19:15 | MHC.EDTECH ---
Patient brought into triage area,EKG taken per order and signed by provider.
[2024-07-01 19:30] VITALS: BP 176/107; PULSE 78; RESP 18; TEMP 36.6; O2SAT 97; BMI 55.0
--- NOTE | 2024-07-01 19:56 | ED.GENADULT ---
HPI - General Adult General Chief complaint: General Medical Stated complaint: headache, chest pain Time Seen by Provider: 07/01/24 21:27 Source: patient Mode of arrival: ambulatory Limitations: no limitations History of Present Illness ED Provider: sukh PRIETO narrative: Patient with history of adjustment disorder hypertension obesity comes here for headache for last 3 days especially in the frontal area no nausea no vomiting also had mild left-sided chest pain which started 2 days ago after becoming agitated no chest pain at this time no nausea no vomiting no recent injury no fall no change in sensorium no history of diagnose sleep apnea Related Data Home Medications ?Medication ?Instructions ?Recorded ?Confirmed No Known Home Meds 03/15/24 03/15/24 Allergies Allergy/AdvReac Type Severity Reaction Status Date / Time No Known Allergies Allergy Verified 07/01/24 19:33 Review of Systems Review of Systems: Yes all other systems are reviewed and are negative [facility] Past Medical History Medical History Morbid obesity Surgical History Hx of vasectomy History of gastrointestinal surgery Social History Social History Housing: Apartment Alcohol intake: never Patient Tobacco Use Status: Current someday Tobacco user Tobacco use type: Cigar e-Cigarette/Vaping Use: Never Used Second Hand Smoke Exposure: No Advance Directives: No Advance Directives Information Provided: No Do you have a plan to hurt others: No Plan service: No Current occupational status: employed 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 Oriented X3. No acute distress. Eyes: PERRLA, No Nystagmus ENT: Pharynx normal. Oral Mucosa moist Neck: Normal inspection. Neck supple. CVS: Normal heart rate and rhythm. Pulses normal. Respiratory: No respiratory distress. Equal air entry bilateral, no wheezing/rales/rhonchi Abdomen: Soft and nontender. Bowel sounds are present, no mass palpable, no CVA tenderness Skin: Skin warm and dry. Normal skin color. Normal skin turgor. Extremities: No lower extremity edema. No calf tenderness Neuro: Oriented X 3. No motor deficit. No sensory deficit.No cerebellar signs , cranial nerves II-XII intact Course Course Course Narrative: RME performed by Sara Arcos PA-C. Patient is a 39 year old assigned male at presenting to the emergency department with intermittent headaches and chest pain. Patient states he has had intermittent headaches and chest pain with generalized weakness. Detailed physical exam and review of systems are deferred to the immigration consultant. EKG, labs, imaging, and swabs ordered. Patient placed back in the waiting room pending room availability and results. Medical Decision Making Medical Decision Making [facility] Narrative: Patient with frontal headache CT scan of the head is negative labs are stable patient noticed to have slightly high blood pressure patient advised to take his blood pressure medications Differential Diagnosis Differential Diagnoses: The differential diagnosis associated with the presentation includes SAH/DARIA/stress headache/ACS/atypical chest Admission/Observation Consideration of admission/observation: Escalation of care including admission/observation considered Lab Data [facility] Lab Attestation statement: I reviewed the patient's lab results. 07/01/24 20:00 07/01/24 20:00 Labs: Lab Results 07/01/24 Range/Units 20:00 WBC 8.2 (4.8-10.8) X10*3/uL RBC 5.33 (4.60-5.80) X10*6/uL Hgb 15.2 (14.0-18.0) g/dl Hct 43.4 (42.0-52.0) % MCV 81.4 (80.0-98.0) fL MCH 28.5 (27.0-33.0) pg MCHC 35.0 (31.0-36.0) g/dl RDW 13.8 (11.0-16.0) % Plt Count 302 (160-400) X10*3/uL MPV 10.0 (9.4-12.4) fL Immature Gran % (Auto) 0.4 (0.0-0.4) % Neut % (Auto) 57.7 (45-73) % Lymph % (Auto) 29.3 (20-40) % [place] % (Auto) 7.9 (2-11) % Eos % (Auto) 4.0 (0-4) % Baso % (Auto) 0.7 (0-2) % Lymph # (Auto) 2.4 (1.2-4.9) X10*3/uL [place] # (Auto) 0.7 (0.1-1.2) X10*3/uL Eos # (Auto) 0.3 (0.0-0.4) X10*3/uL Baso # (Auto) 0.1 (0.0-0.2) X10*3/uL Abs Immat Gran (auto) 0.03 (0.00-0.03) X10*3/uL Absolute Neuts (auto) 4.7 (2.0-8.3) x10*3/uL Absolute Nucleated RBC 0.000 (0.0-0.012) X10*3/uL Nucleated RBC % (auto) 0.0 (0.0-0.2) /100WBC Sodium 141 (135-145) mmol/L Potassium 4.4 (3.3-5.1) mmol/L Chloride 108 (96-108) mmol/L Carbon Dioxide 27 (22-29) mmol/L Anion Gap 10 L (12-20) BUN 12 (9-16) mg/dL Creatinine 0.85 (0.5-1.4) mg/dL Estim Creat Clear Calc 219.6 Estimated GFR > 60 Random Glucose 94 (60-115) mg/dL Calcium 9.2 (8.4-10.2) mg/dL Magnesium 2.2 (1.6-2.6) mg/dL Total Bilirubin 0.3 (0.0-1.0) mg/dL AST 24 (5-37) U/L ALT 27 (0-40) U/L Alkaline Phosphatase 90 (39-117) U/L Troponin I High Sens 5.6 (<3.5-35.0) ng/L Total Protein 7.7 (6.5-8.0) g/dL Albumin 4.4 (3.5-5.0) g/dL Independent Interpretation I performed an independent interpretation of an: EKG and CT Scan Interpretation: Normal CT scan Heart rate 75 beats per minute normal intervals normal axis no acute ST T wave changes no acute ischemia Radiology Impression Discussion of test interpretation with radiology: I have reviewed the radiologist's reading. Discharge Plan Discharge Clinical Impression: Headache, Chest pain Patient Disposition: Home, Self-Care Instructions: Chest Pain (ED), General Headache (ED) Additional Instructions: Your headache is likely from tension/stress Your CT scan is negative for acute Ibuprofen for pain Follow the PCP Prescriptions: No Action No Known Home Meds Print Language: Citizen Of [place]
--- NOTE | 2024-07-01 20:00 | MHC.EDTECH ---
Patient was called in into triage area,labs drawn and sent to lab
[2024-07-01 20:06] LABS: MANUAL DIFF FLAG NO
[2024-07-01 20:08] LABS: Basophils Absolute Auto 0.1 X10*3/uL (0.0-0.2); Basophils Percent Auto 0.7 % (0-2); Eosinophils Absolute Auto 0.3 X10*3/uL (0.0-0.4); Hematocrit 43.4 % (42.0-52.0); Hemoglobin 15.2 g/dl (14.0-18.0); Imm Gran Abs Auto 0.03 X10*3/uL (0.00-0.03); Imm Gran Pct Auto 0.4 % (0.0-0.4); Lymphocytes Absolute Auto 2.4 X10*3/uL (1.2-4.9); Lymphocytes Percent Auto 29.3 % (20-40); Mean Corpuscular Hemoglobin 28.5 pg (27.0-33.0); Mean Corpuscular Volume 81.4 fL (80.0-98.0); Monocytes Absolute Auto 0.7 X10*3/uL (0.1-1.2); Monocytes Percent Auto 7.9 % (2-11); Neutrophils Absolute Auto 4.7 x10*3/uL (2.0-8.3); Neutrophils Percent Auto 57.7 % (45-73); Platelet Count 302 X10*3/uL (160-400); Red Blood Count 5.33 X10*6/uL (4.60-5.80); Red Cell Distribution Width 13.8 % (11.0-16.0); White Blood Count 8.2 X10*3/uL (4.8-10.8)
[2024-07-01 20:24] LABS: Alanine Aminotransferase 27 U/L (0-40); Albumin Level 4.4 g/dL (3.5-5.0); Alkaline Phosphatase 90 U/L (39-117); Anion Gap 10 (12-20); Aspartate Amino Transferase 24 U/L (5-37); Bilirubin Total 0.3 mg/dL (0.0-1.0); Blood Urea Nitrogen 12 mg/dL (9-16); Calcium 9.2 mg/dL (8.4-10.2); Carbon Dioxide 27 mmol/L (22-29); Chloride 108 mmol/L (96-108); Creatinine Clr Calc Pharmacy 219.6; Estimated Glomerular Filt Rate > 60; Glucose Random 94 mg/dL (60-115); Magnesium 2.2 mg/dL (1.6-2.6); Potassium 4.4 mmol/L (3.3-5.1); Sodium 141 mmol/L (135-145); Total Protein 7.7 g/dL (6.5-8.0)
[2024-07-01 20:31] LABS: Troponin-I High Sensitivity 5.6 ng/L (<3.5-35.0)
[2024-07-01 22:20] VITALS: BP 142/83; PULSE 71; RESP 18; TEMP 36.8; O2SAT 96
== END 2024-07-01 22:20 | disposition home or self-care (01) ==
PROVIDERS: Emergency Provider Internal Medicine; PCP Physician Assistant
DX: R51.9 Headache, unspecified (principal); R07.9 Chest pain, unspecified; F17.200 Nicotine dependence, unspecified, uncomplicated; I10 Essential (primary) hypertension
CPT/HCPCS: 36415; 70450; 71046; 80053; 83735; 84484; 85025; 93005; 99284

== ENCOUNTER 2024-11-18 22:04 | Emergency (ER) | payer OTHER, SELFPAY ==
--- NOTE | ~2024-11-18 | XR_ITS ---
CLINICAL HISTORY: injury 3 views lumbar spine Comparison: None Findings: Normal vertebral body alignment. No acute fractures or dislocation. No significant degenerative change. IMPRESSION: No acute findings. This document has been electronically signed by: Jamil Mcneill MD on 11/19/2024 03:53:50
[2024-11-18 22:11] VITALS: BP 129/87; PULSE 62; RESP 20; TEMP 36.7; O2SAT 99; BMI 50.0
--- NOTE | 2024-11-19 03:40 | PC.NURSE ---
Xray completed. Awaiting initial ED provider evaluation. Patient has been resting quietly and comfortably. No acute distress. Stated pain of 6-7 out of 10.
--- NOTE | 2024-11-19 05:01 | ED_ITS ---
HPI - General Adult General Chief complaint: General Medical Stated complaint: Hurt back at work yesterday. Time Seen by Provider: 11/19/24 04:50 Source: patient Mode of arrival: ambulatory Limitations: no limitations History of Present Illness ED Provider: Dr. Jackeline Wheeler HPI narrative: Patient comes to the emergency room complaining of more than 24 hours of lower back pain, occasionally hurting with certain movements. 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 However, patient tissue guarded, hoping it would get better, continued working. Patient states that the pain radiates towards the left leg. Patient states that as long as he is not moving, he has no pain. Also, when patient is lying bed, patient has no pain. Only when he sits up. Patient denies any urinary/fecal incontinence/retention. Related Data Previous Rx's ?Medication ?Instructions ?Recorded acetaminophen 500 mg tablet 500 mg PO Q6H PRN fever or pain 11/19/24 #20 tabs cyclobenzaprine 10 mg tablet 10 mg PO TID PRN muscle spasm #10 11/19/24 tabs ibuprofen 600 mg tablet 600 mg PO TID PRN fever or pain 11/19/24 #20 tabs Allergies Allergy/AdvReac Type Severity Reaction Status Date / Time No Known Allergies Allergy Verified 11/18/24 22:16 Review of Systems Review of Systems: Constitutional : No Weight loss, No Fever, No Chills, No Night Sweats, No Fatigue, No Malaise ENT/Mouth : No Hearing loss, No Ear Pain, No Nasal Congestion, No Sinus Pain, No Hoarseness, No sore throat, No Rhinorrhea, No Swallowing Difficulty Eyes: No Eye Pain, No Swelling, No Redness, No Foreign Body, No Discharge, No Vision Changes Cardiovascular : No Chest Pain, No SOB, No Dyspnea on Exertion, No Orthopnea, No Edema, No Palpitations Respiratory : No Cough, No Sputum, No Wheezing, No Smoke Exposure, No Dyspnea Gastrointestinal : No Nausea, No Vomiting, No Diarrhea, No Constipation, No abdominal Pain, No Hematochezia, No Melena Genitourinary : no irregular bleeding, No Dysuria, No Urinary Frequency, No Hematuria, No Urinary Incontinence, No Urgency, No Flank Pain, No Urinary Flow Changes, No Hesitancy Musculoskeletal : Complaining of bilateral lower back pain intermittently with certain movements,, No Myalgias, No Joint Swelling Skin : No Skin Lesions, No rash Neuro : No Weakness, No Numbness, No Paresthesias, No Loss of Consciousness, No Dizziness, No Headache Psych : No Anxiety/Panic, No Depression, No SI/HI/AH/VH, No Social Issues, Heme/Lymph: No Bruising, No Bleeding,No Lymphadenopathy Endocrine : No Polyuria, No Polydipsia, No Temperature Intolerance [facility] Past Medical History Medical History Morbid obesity Surgical History Hx of vasectomy History of gastrointestinal surgery Social History Social History Housing: Apartment Alcohol intake: never Patient Tobacco Use Status: Current someday Tobacco user Tobacco use type: Cigar e-Cigarette/Vaping Use: Never Used Second Hand Smoke Exposure: No Advance Directives: No Advance Directives Information Provided: Yes Do you have a plan to hurt others: No Plan service: No Current occupational status: employed 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 Oriented X3. No acute distress. Eyes: Pupils equal, round and reactive to light. ENT: Pharynx normal. Neck: Normal inspection. Neck supple. No lymph nodes noted. No crepitus CVS: Normal heart rate and rhythm. Pulses normal. Normal S1 and S2 Respiratory: No respiratory distress. Breath sounds normal. No Wheezing. No rales Abdomen: Soft and nontender. No rigidity. No distention. Back: No pain to palpation over the cervical/thoracic/lumbar pain, no pain to palpation over the paraspinal muscles. Negative straight leg raise test bilaterally. Skin: Skin warm and dry. Normal skin color. Normal skin turgor. Extremities: No lower extremity edema. No Lacerations. No Rash Neuro: Oriented X 3. No motor deficit. No sensory deficit. Moving all extremities. No slurred speech. CN 2 through 12 grossly intact, normal steady gait, bilateral normal strength Psych: calm, cooperative, normal affect Medical Decision Making Medical Decision Making [facility] Narrative: Patient was offered IM Toradol/Decadron for symptomatic relief, patient declined. I discussed with the patient that the source of pain is likely musculoskeletal. Given patient's physical exam, this pain is likely secondary to a pulled muscle. However, patient may have sciatica, herniated disc. Patient will try muscle relaxants and ibuprofen/Tylenol at home. I discussed with the patient that if the pain does not improve, he may need physical therapy evaluation and more advanced imaging such as MRI. Since this accident happened at work, patient instructed to follow-up with Dr. Jackson at work connection. Independent Interpretation I performed an independent interpretation of an: Plain X-Ray Interpretation: Normal vertebral body alignment. No acute fractures or dislocation. No significant degenerative change. IMPRESSION: No acute findings Radiology Impression Discussion of test interpretation with radiology: I have reviewed the radiologist's reading. Discharge Plan Discharge Clinical Impression: Musculoskeletal back pain Patient Disposition: Home, Self-Care Instructions: Back Pain (ED) Additional Instructions: Please follow-up with your primary care physician tomorrow. If you have any worsening or new symptoms, please return to the emergency room or call 911 Prescriptions: New cyclobenzaprine 10 mg tablet 10 mg PO TID PRN (Reason: muscle spasm) Qty: 10 0RF acetaminophen 500 mg tablet 500 mg PO Q6H PRN (Reason: fever or pain) Qty: 20 0RF ibuprofen 600 mg tablet 600 mg PO TID PRN (Reason: fever or pain) Qty: 20 0RF Referrals: Walker Jackson MD [Physician] - 11/21/24 Print Language: Setswana
[2024-11-19 05:26] VITALS: BP 141/80; PULSE 55; RESP 20; TEMP 36.5; O2SAT 99
--- NOTE | 2024-11-19 05:28 | PC.NURSE ---
Took over care from RHONDA Keita, reviewed discharge instructions with pt. pt verbalized understanding, no sign of distress. pt has a steady gait.
[2024-11-19 05:33] VITALS: BP 141/80; PULSE 55; RESP 20; TEMP 36.5; O2SAT 99
== END 2024-11-19 05:34 | disposition home or self-care (01) ==
PROVIDERS: Emergency Provider Emergency Medicine; PCP Physician Assistant
DX: M54.50 Low back pain, unspecified (principal); M79.605 Pain in left leg
CPT/HCPCS: 72100; 99283; 99284

== ENCOUNTER → 2024-11-19 03:05 | Outpatient (BNV) | payer OTHER, SELFPAY | PROVIDERS: PCP Physician Assistant; Visit Provider Radiology Diagnostic Radiology | DX: T14.90XA Injury, unspecified, initial encounter (principal) | CPT/HCPCS: 72100 ==

== ENCOUNTER 2025-04-18 06:09 | Outpatient (REF) | payer OTHER, SELFPAY ==
[2025-04-18 07:22] LABS: Hematocrit 44.7 % (42.0-52.0); Hemoglobin 15.2 g/dl (14.0-18.0); Mean Corpuscular Hemoglobin 27.5 pg (27.0-33.0); Mean Corpuscular Volume 80.8 fL (80.0-98.0); Mean Platelet Volume 10.1 fL (9.4-12.4); Platelet Count 293 X10*3/uL (160-400); Red Blood Count 5.53 X10*6/uL (4.60-5.80); Red Cell Distribution Width 13.3 % (11.0-16.0); White Blood Count 6.7 X10*3/uL (4.8-10.8)
[2025-04-18 08:01] LABS: Alanine Aminotransferase 23 U/L (0-40); Albumin Level 4.1 g/dL (3.5-5.0); Alkaline Phosphatase 77 U/L (39-117); Anion Gap 12 (12-20); Aspartate Amino Transferase 33 U/L (5-37); Bilirubin Total 0.4 mg/dL (0.0-1.0); Blood Urea Nitrogen 13 mg/dL (9-16); Calcium 8.8 mg/dL (8.4-10.2); Carbon Dioxide 24 mmol/L (22-29); Chloride 109 mmol/L (96-108); Estimated Glomerular Filt Rate > 60; Glucose Fasting 98 mg/dL (60-99); Sodium 141 mmol/L (135-145); Total Protein 6.9 g/dL (6.5-8.0)
[2025-04-18 08:07] LABS: Vitamin D 25-OH Total 19.3 ng/mL (>30)
[2025-04-18 08:26] LABS: Syphilis Screen Nonreactive (Nonreactive)
[2025-04-18 08:29] LABS: Creatinine Urine 199.35 mg/dL
[2025-04-18 08:30] LABS: HBS Num1 > 1000.00 mIU/mL (0-7.99); HBc Num1 0.05 S/CO (0.00-0.79); HBsAGNum1 0.38 S/CO (0.00-0.99); HIV AB/AG Nonreactive (Nonreactive); HIV Num 1 0.05 S/CO (0.00-0.99); Hepatitis B Core Antibody Nonreactive (Nonreactive); Hepatitis B Surface Antigen Negative (Negative); ~HepC Num1 0.16 S/CO (0.00-0.79); ~Hepatitis B Surface Antibody REACTIVE (Nonreactive); ~Hepatitis C Antibody Nonreactive (Nonreactive)
[2025-04-18 13:54] LABS: CT PCR NOT DETECTED (Not Detect.); NG PCR NOT DETECTED (Not Detect.)
== END 2025-04-18 06:10 | disposition home or self-care (01) ==
LOC: HO.LAB 06:09
PROVIDERS: PCP Physician Assistant; Visit Provider Physician Assistant
DX: Z20.2 Contact with and (suspected) exposure to infections with a predominantly sexual mode of transmission (principal); I10 Essential (primary) hypertension; E55.9 Vitamin D deficiency, unspecified
CPT/HCPCS: 80053; 82043; 82306; 82570; 85027; 86704; 86706; 86780; 86803; 87340; 87389; 87491; 87591

== ENCOUNTER 2025-05-15 12:39 | Outpatient (AMB) | payer OTHER, SELFPAY ==
--- NOTE | 2025-05-15 12:47 | MHC.PC.OV ---
Vital Signs 05/15/25 12:50 Height 6 ft 3 in Weight 412 lb BMI 51.5 BP 132/68 Blood Pressure Location Lt brachial Position Sitting Pulse 64 Pulse Source Pulse Oximeter Temp 97.1 F Temp Source Temporal Artery Scan Pulse Oximetry (%) 98 Oxygen Delivery Method Room Air Intake Visit Reasons: Annual Physical Intake Note: Patient is here today for a physical. Heel Finisher Required: No Product Safety Tester: Not Required per policy Accompanied by: Self / Same As Patient Allergies No Known Allergies Allergy (Verified 05/15/25 13:03) Medication List - Last Reconciled 05/15/25 by Franc Mccauley PA-C cholecalciferol (vitamin D3) 50 mcg PO DAILY 90 days Tobacco use date assessed: 05/15/25 Dental Screening Dental Screen Date: 05/15/25 Did you have a dental visit in the last 12 months?: Yes Did you have a dental problem in the last 6 months where you did not have access to dental care?: No Was dental information given to patient?: Patient has dentist HPI Annual Physical HPI Details Patient is a 39-year-old male here today for annual physical. Patient has a past medical history significant for obesity. .. Concern--> reports he has been experiencing hoarseness of his voice and throat irritation in the mornings. He does report having little vesicles he is able to pop in the back of his throat that occurs from time to time. Of note He reports smoking cigars 2-3 times per week. Morbid obesity: He is status post gastric sleeve many years ago. He has reestablish care with [facility]. Unfortunately has gained 5 lb since last office visit.. He is now seeing a different weight management program and [place]. He struggles on losing weight. 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 1. Little interest or pleasure in doing things: nearly every day 2. Feeling down, depressed, or hopeless: not at all 3. Trouble falling or staying asleep, or sleeping too much: not at all 4. Feeling tired or having little energy: not at all 5. Poor appetite or overeating: not at all 6. Feeling bad about yourself - or that you are a failure or have let yourself or your family down: not at all 7. Trouble concentrating on things, such as reading the newspaper or watching television: not at all 8. Moving or speaking so slowly that other people could have noticed. Or the opposite - being so fidgety or restless that you have been moving around a lot more than usual: not at all 9. Thoughts that you would be better off or of hurting yourself in some way: not at all Total score: 3 Depression Screening Interpretation: Positive Depression Screening Follow-up: Existing condition and Declines treatment Depression Screening Done: Yes 62570 - PHQ-9 Billing: Yes Source: Developed by Drs. Karthik Omer, Carlita Andrade, James Díaz and colleagues, with an educational mari from [employer]. Thrive Questionnaire Date Thrive assessed: 05/15/25 I am a: Patient What is your living situation today?: I have a steady place to live Within the past 12 months, did the food you bought not last and you didn't have the money to get more?: I choose not to answer this question Within the past 12 months, did you worry whether your food would run out before you got money to buy more?: I choose not to answer this question Do you have trouble paying for medicines?: I choose not to answer this question Do you have trouble getting transportation to medical appointments?: No Do you have trouble paying your heating and electricity bill?: I choose not to answer this question Do you have trouble taking care of your child, family member or friend?: No Do you have trouble with day-to-day activities such as bathing, preparing meals, shopping, managing finances, etc.?: No Are you currently unemployed and looking for a job?: No Are you interested in more education?: I choose not to answer this question Please select the resources that you would like help with: None Currently or been in a relationship where the following occur: No concerns reported THRIVE Score: 0 AUDIT C Alcohol Use Questionnaire (AUDIT-C) 1. How often do you have a drink containing alcohol?: Never Total Score: 0 ARLEEN-7 AMB Questionnaire ARLEEN-7 Date ARLEEN - 7 assessed: 05/15/25 Feeling nervous, anxious, or on edge: 0 = Not at all Not being able to stop or control worryin = Not at all Worrying too much about different things: 0 = Not at all Trouble relaxin = Not at all Being so restless that it is hard to sit still: 0 = Not at all Becoming easily annoyed or irritable: 0 = Not at all Feeling afraid as if something awful might happen: 0 = Not at all Total ARLEEN-7 score (0-4 normal; 5-9 mild; 10-14 moderate; 15-21 severe): 0 Source: Developed by Drs. Karthik Omer, Carlita Andrade, James Díaz and colleagues, with an educational mari from [employer]. ARLEEN-7 Assessment Billing ARLEEN-7 Assessment Tool: ARLEEN-7 Assessment 27876 Review of Systems Const Denies body aches, Denies chills, Denies excessive sweating, Denies fatigue, Denies fever(s) and Denies headache(s) Eyes Denies blurry vision ENT Denies dysphagia, Denies vertigo, Denies dizziness, Denies headache(s), Denies hearing loss and Denies tinnitus Card Denies chest pain, Denies chest pain with activity, Denies syncope, Denies irregular heart rhythm and Denies dyspnea Resp Denies chest congestion, Denies cough, Denies hemoptysis, Denies dyspnea and Denies wheezing GI Denies abdominal pain, Denies melena, Denies hematochezia, Denies coffee ground emesis, Denies dysphagia, Denies diarrhea, Denies nausea and Denies vomiting Denies difficulty urinating, Denies dysuria, Denies urinary frequency, Denies urinary hesitancy and Denies urinary urgency Musc Denies arthralgias, Denies limited range of motion, Denies muscle cramps and Denies muscle weakness Skin/Breast Denies rash and Denies skin ulcer Neuro Denies Abnormal speech present, Denies confusion, Denies vertigo, Denies dizziness, Denies syncope, Denies headache(s), Denies memory loss and Denies seizure-like activity Psych Denies anxiety, Denies confusion, Denies depression, Denies memory loss, Denies panic attacks and Denies paranoia Endo Denies excessive sweating, Denies fatigue, Denies flushing, Denies polydipsia and Denies polyuria Aller/Immun Denies wheezing Physical exam (Primary Care) Vital Signs: Last Vital Signs Temp 97.1 F 05/15/25 12:50 Pulse 64 05/15/25 12:50 BP 132/68 05/15/25 12:50 Pulse Ox 98 05/15/25 12:50 Oxygen Delivery Method Room Air 05/15/25 12:50 BMI result Body Mass Index 51.5 BMI Assessment/Plan discussion: High BMI High, discussed plan: lifestyle, weight reduction, dietary and physical activity Tobacco/Smoking Status: Tobacco use Status Tobacco use date assessed 05/15/25 05/15/25 12:56 Patient Tobacco Use Status Current someday Tobacco 05/15/25 12:48 Tobacco use type Cigar 05/15/25 12:48 e-Cigarette/Vaping Use Never Used 05/15/25 12:48 PHQ-9: PHQ-9 Score PHQ-9: Total score 3 05/15/25 13:03 Depression Screening Interpretation: Positive Depression Screening Follow-up: Existing condition and Declines treatment Thrive Assessment: Date of Thrive Assessment Date Thrive assessed 05/15/25 05/15/25 12:48 Currently or been in a relationship where the following occur: No concerns reported Const Other: Obese General: cooperative, comfortable, no acute distress, alert and awake; No confusion Orientation/consciousness: oriented to person, oriented to place, patient oriented x3 and No confusion HENMT Head: Yes normocephalic Ears: external ears normal and TM's normal bilaterally Face and sinus: No sinus tenderness Mouth: Normal oral and palatal mucosa present and tongue normal Teeth and gingiva: dentition normal and gingiva normal Throat: Yes posterior oropharynx normal, Yes tonsils normal and Yes uvula midline Eyes Conjunctivae: conjunctivae normal Sclerae: sclerae normal Pupils: Equal, round and reactive pupils present EOM: EOMs intact bilaterally Direct Ophthalmoscopy: No no photophobia Neck Neck: Yes no lymphadenopathy, No tender and Yes no JVD Thyroid: Thyroid normal Carotids: no bruits Chest Chest palpation & inspection: no tenderness Resp Effort & Inspection: normal respiratory effort, no audible wheezes, not labored and no stridor Auscultation: no crackles, no rales, no rhonchi and no wheezes Cardio Jugular venous distension: no JVD Rate: regular rate, not bradycardic and not tachycardic Rhythm: regular rhythm Bruits: no carotid bruits Peripheral pulses: Peripheral pulses 2+ throughout GI Inspection: Yes normal to inspection, No abdominal wall ecchymosis and No visible herniation Palpation (GI): Soft to palpation, nontender, no guarding, not rigid and No hepatosplenomegaly present Auscultation: normoactive bowel sounds General: Yes no CVA tenderness Back/Spine/Pelvis Back: no CVA tenderness and No back tenderness Cervical Spine: cervical ROM normal Thoracic/Lumbar Spine: thoracic and lumbar spine normal to inspection, straight leg raise negative bilaterally, No thoraco-lumbar ROM limited and No lumbar spinal tenderness Skin Lesions: no lesions Rashes: no rashes Wounds: no wounds Neuro General: oriented to person, oriented to place, patient oriented x3, CN's II-XI intact bilaterally and No confusion Cranial nerves: Yes Equal, round and reactive pupils present and Yes Normal accommodation reflex present Cognition (Neuro): normal cognition Speech: No Abnormal speech present Gait exam (Neuro): Normal gait present Motor exam (neuro): 5/5 motor strength present throughout Extrem Right upper extremity: full ROM; no cyanosis Left upper extremity: full ROM; no cyanosis Right lower extremity: no edema Left lower extremity: no edema Psych Appearance: grossly normal Mental Status: mental status grossly normal Affect: normal affect Attitude: cooperative Thought process: Normal thought process present Coding Level of Care Code Est Pt Prev Care 18-39y(80753) Diagnoses Annual physical exam Z00.00 Vitamin D deficiency E55.9 Class 3 obesity E66.813 Hoarseness of voice R49.0 Additional Codes PHQ-9 - 51354 - PHQ-9 Billing: Yes ([id number]) ARLEEN-7 Assessment Billing - ARLEEN-7 Assessment Tool: ARLEEN-7 Assessment 15569 ([id number]) Assessment & Plan Assessment & Plan (1) Annual physical exam: Code(s): Z00.00 - Encounter for general adult medical examination without abnormal findings Category: Medical Plan: As per HPI (2) Vitamin D deficiency: Code(s): E55.9 - Vitamin D deficiency, unspecified Category: Medical Plan: Patient noted to have slightly low vitamin-D at 19. He is not consistent with taking his vitamin-D supplementation. (3) Class 3 obesity: Code(s): E66.813 - Obesity, class 3 Category: Medical Plan: Patient is status post barriers to surgery years ago. Patient does understand his BMI is over 50 and has been working with the weight management program and [place] that it does coaching and dietary supplementation. He is interested in GLP 1 though has not been covered by his insurance. (4) Hoarseness of voice: Code(s): R49.0 - Dysphonia Category: Medical Plan: Has noted a hoarseness of voice over the last few months, he does reports throat irritation particularly in the mornings. He also does report having small vesicles he is able to pop in the back of his throat. Will check herpes antibodies. Consider sleep study testing to evaluate for obstructive sleep apnea as he is at risk for this. Will refer to ENT specialty to do scope to evaluate the vocal cords Orders: Orders Syphilis Screen 11 Months Z11.3 - Encounter for screening for infections with a predominantly sexual mode of transmission HIV Ab/Ag 11 Months Z11.3 - Encounter for screening for infections with a predominantly sexual mode of transmission Herpes Simplex Virus Ab IgG Today Z11.3 - Encounter for screening for infections with a predominantly sexual mode of transmission Complete Blood Count no Diff 11 Months I10 - Essential (primary) hypertension Vitamin A 11 Months E50.9 - Vitamin A deficiency, unspecified Vitamin D 25-OH Total 11 Months E55.9 - Vitamin D deficiency, unspecified Comprehensive [place]. Panel Fast 11 Months I10 - Essential (primary) hypertension Vitamin C 11 Months E50.9 - Vitamin A deficiency, unspecified Referrals Ear/Nose/Throat Referral R49.0 - Dysphonia
[2025-05-15 12:50] VITALS: BP 132/68; PULSE 64; TEMP 36.2; O2SAT 98; BMI 51.5
--- OUTSIDE RECORDS SUMMARY | 2025-05-15 13:21 | XMS_ITS | Clinical Summary ---
Author Organization [facility] Address [address] [place] [id number] Phone Care Team Providers Care Mmd Unit Teacher Name Role Phone Pcp, Unknown Primary Care Provider Unavailabl e Allergies No known active allergies Medications No known medications Social History Tobacco Use Types Packs/Day Years Used Date Smoking Tobacco: Never Assessed Education Answer Date Recorded Are you interested in more education? Not on vandana e 12/13/2023 Are you concerned about learning? Not on file 12/13/2023 No 12/13/2023 No 12/13/2023 Digital Access Answer Date Recorded No 12/13/2023 No 12/13/2023 Reliable internet access at home? Not on file 12/13/2023 Device with a working camera? Not on file Sex and Gender Information Value Date Recorded Sex Assigned at Not on file Legal Sex Male 12:58 PM EST Gender Identity Not on file Sexual Orientation Not on file Last Filed Vital Signs Vital Sign Reading Time Taken Comments Blood Pressure 129/79 12/13/2023 1:32 PM EST Pulse 67 12/13/2023 1:32 PM EST Temperature 36.4 C (97.5 F) 12/13/2023 1:32 PM EST Respiratory Rate 20 12/13/2023 1:32 PM EST Oxygen Saturation 98% 12/13/2023 1:32 PM EST Inhaled Oxygen Concentration - - Weight 188.7 kg (416 lb) 12/13/2023 1:32 PM EST Height 190.5 cm (6' 3 ) 12/13/2023 1:32 PM EST Body Mass Index 52 12/13/2023 1:32 PM EST Plan of Treatment Health Maintenance Due Date Last Done Comments Adult Td,Tdap Booster 1987 LIPID PANEL 1987 DEPRESSION SCREENING 1999 SMOKING Hx and SMOKELESS TOB ACCO SCREENING 2000 HEPATITIS C SCREENING 2005 HIV ONE-TIME SCREENING (18-6 5 YEARS) 2005 SCREENING FOR DIABETES 2022 COVID-19 VACCINE (2023-2 5 season) 2024 HEPATITIS A VACCINES Aged Out No long er eligible based on patient's age to complete this topic HIB VACCINES Aged Out No longer eligi ble based on patient's age to complete this topic MENINGOCOCCAL VACCINES (ACWY) Aged Out No longer eligible based on patient's age to complete this topic MENINGOCOCCAL VACCINES (B) Aged Out N o longer eligible based on patient's age to complete this topic PNEUMOCOCCAL VACCINES (0-49 years) Aged Out No longer eligible based on patient's age to complete this topic Medical Devices Not on file Insurance [facility] POS [facility] POS [facility] POS [facility] POS [facility] POS Member Subscriber Plan / Payer (Ef fective 2023-Present) Name:Erasmo Amaya Relation to Subscriber:Self Name:Erasmo Amaya Payer ID:[id number] (NAIC) Group ID:[id number] Type:POS Address: [facility] [id number] [place] [id number] [facility] POS Care Teams Mmd Unit Teacher Relationship Specialty Start Date End Date Pcp, Unknown PCP - General 12/13/23 Additional Source Comments The information contained in this document represents components of the legal health record. It is not the complete legal health record.[facility]
== END 2025-05-15 13:28 | disposition home or self-care (01) ==
LOC: HO.HMCH 12:40
PROVIDERS: PCP Physician Assistant; Visit Provider Physician Assistant
DX: Z00.00 Encounter for general adult medical examination without abnormal findings (principal); E55.9 Vitamin D deficiency, unspecified; E66.813 Obesity, class 3; Z68.43 Body mass index [BMI] 50.0-59.9, adult; R49.0 Dysphonia

== ENCOUNTER → 2025-05-15 12:39 | Outpatient (BNVA) | payer OTHER, SELFPAY | PROVIDERS: PCP Physician Assistant; Visit Provider Physician Assistant | DX: Z00.00 Encounter for general adult medical examination without abnormal findings (principal); E55.9 Vitamin D deficiency, unspecified; E66.813 Obesity, class 3; R49.0 Dysphonia; Z68.43 Body mass index [BMI] 50.0-59.9, adult | CPT/HCPCS: 96127 ==

== ENCOUNTER 2025-05-29 19:08 | Emergency (ER) | payer OTHER, SELFPAY ==
--- NOTE | ~2025-05-29 | US_ITS ---
CLINICAL HISTORY: scrotal swelling, pain US Scrotum with Doppler Comparison: None provided Findings: Right testicle measures 4.9 x 3.8 x 3.5 cm. Left testicle measures 4.5 x 3.2 x 2.8 cm. 5 mm cystic structure of the head of the partially imaged left epididymis likely due to small spermatocele. Small bilateral hydroceles are nonspecific and likely reactive. Borderline dilatation versus small varicocele with multiple imaged veins measuring 3 mm maximum diameter. Mixed echogenicity of the left epididymis is nonspecific and concerning for mild and early epididymitis particularly given swelling and/or mass-effect in the imaged tail of the left epididymis. No definite or defined mass of the either imaged testicle by ultrasound, side lobe artifacts. Doppler: Doppler arterial waveform of the right testicle demonstrates peak systolic velocity of 7 cm/sec and resistive index of 0.5, accounting for aliasing artifacts. Doppler arterial waveform of the left testicle demonstrates peak systolic velocity of 8cm/sec and resistive index of 0.5, accounting for aliasing artifacts. IMPRESSION: 1. No ultrasound findings of testicular torsion. 2. Likely mild and early left epididymitis. 3. Small bilateral hydroceles are likely reactive. This document has been electronically signed by: Jimbo Chester MD on 05/29/2025 21:18:05
[2025-05-29 19:12] VITALS: BP 147/82; PULSE 72; RESP 16; TEMP 36.8; O2SAT 97; BMI 51.4
--- NOTE | 2025-05-29 19:15 | ED.GENADULT ---
HPI - General Adult General Chief complaint: Urogenital-Male Stated complaint: pinched testicle thursday still hurting Time Seen by Provider: 05/29/25 23:42 Source: patient Limitations: no limitations History of Present Illness ED Provider: Alejandra Torres PA-C HPI narrative: 40-year-old male with a history of morbid obesity, hypertension, who presents with acute onset testicular pain since earlier today. Patient states he developed the pain while sitting. Associated swelling. Denies overlying redness, penile discharge, dysuria or risk for STD. Denies trauma to the scrotum. Related Data Previous Rx's ?Medication ?Instructions ?Recorded cholecalciferol (vitamin D3) 50 50 mcg PO DAILY 90 days #90 caps 04/18/25 mcg (2,000 unit) capsule ketorolac 10 mg tablet 10 mg PO Q6H PRN pain #20 tabs 05/30/25 levofloxacin 500 mg tablet 500 mg PO DAILY #9 tabs 05/30/25 Allergies Allergy/AdvReac Type Severity Reaction Status Date / Time No Known Allergies Allergy Verified 05/29/25 19:17 Review of Systems Review of Systems: Yes all other systems are reviewed and are negative Constitutional: Constitutional: Denies fatigue and Denies fever(s) Cardiovascular: Cardiovascular: Denies chest pain and Denies dyspnea Respiratory: Respiratory: Denies dyspnea Gastrointestinal: Gastrointestinal: Denies abdominal pain, Denies nausea and Denies vomiting Genitourinary: Genitourinary: Denies genital lesions, Reports genital pain, Denies dysuria, Denies penile discharge, Reports scrotal swelling, Denies testicular mass and Reports testicular pain Endocrine: Endocrine: Denies fatigue PMFSH Past Medical History Attestation statement: The following information was validated with the patient. 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 Cognitive needs: No Hearing needs: No Vision needs: No Physical Exam ED Vital Signs: Vital Signs - 24 hr 05/29/25 19:12 05/29/25 23:33 Temperature 98.2 F 98.1 F Pulse Rate 72 60 Respiratory Rate 16 18 Blood Pressure 147/82 H 125/70 Pulse Oximetry 97 98 Oxygen Delivery Method Nasal Cannula Room Air BMI result Body Mass Index 51.4 Const Other: Alert well-appearing Orientation/consciousness: patient oriented x3 Resp Effort & Inspection: normal respiratory effort Cardio Other: Normal peripheral perfusion Other: There was no obvious swelling over the scrotum, there was no overlying erythema or warmth of the testicles, no penile discharge noted, no concerning lesions over the external genitalia Skin Other: Warm dry no rash Neuro General: patient oriented x3, gait normal, no focal motor deficits and CN's II-XI intact bilaterally Psych Other: Cooperative Course Course Course Narrative: RME performed by Sara Arcos PA-C. Patient is a 40 year old assigned male at presenting to the emergency department with testicular pain. Patient states that he is having significant testicular pain and feels a mass. Detailed physical exam and review of systems are deferred to the manager primary care. Imaging ordered. Patient placed back in the waiting room pending room availability and results. Medical Decision Making Medical Decision Making MDM Narrative: 40-year-old male with a history of morbid obesity, hypertension, who presents with acute onset testicular pain since earlier today. Patient states he developed the pain while sitting. Associated swelling. Denies overlying redness, penile discharge, dysuria or risk for STD. Denies trauma to the scrotum. No chronic issues History: Per patient I have considered the following differential diagnoses: Torsion, epididymitis, orchitis, urethritis, varicocele Plan: Ultrasound was ordered from triage, the patient has evidence of developing epididymitis, he also has bilateral hydroceles which are thought to be reactive, he has no risk factors for STDs, we will start Levaquin. I have independently reviewed the following tests: Scrotal ultrasoundIMPRESSION: 1. No ultrasound findings of testicular torsion. 2. Likely mild and early left epididymitis. 3. Small bilateral hydroceles are likely reactive. Discharge Plan Discharge Clinical Impression: Acute epididymitis Patient Disposition: Home, Self-Care Instructions: Epididymitis (ED) Additional Instructions: The ultrasound revealed that you are developing epididymitis. See home care instructions. Take the levofloxacin as directed, make sure to complete the course of this antibiotic. Use the ketorolac as needed for pain this is an anti-inflammatory. The pain and swelling will gradually resolve. Follow up with your primary care provider as needed. Prescriptions: New levofloxacin 500 mg tablet 500 mg PO DAILY Qty: 9 0RF ketorolac 10 mg tablet 10 mg PO Q6H PRN (Reason: pain) Qty: 20 0RF Rx Instructions: maximum total duration of 5 days from all oral, intranasal, or parenteral formulations. The patient received an intramuscular dose of Toradol here in the emergency No Action cholecalciferol (vitamin D3) 50 mcg (2,000 unit) capsule 50 mcg PO DAILY 90 Days Qty: 90 1RF Stand Alone Forms: Work/School Release Print Language: [place] Citizen
[2025-05-29 23:33] VITALS: BP 125/70; PULSE 60; RESP 18; TEMP 36.7; O2SAT 98
[2025-05-30 00:56] VITALS: BP 125/70; PULSE 60; RESP 18; TEMP 36.7; O2SAT 98
== END 2025-05-30 00:57 | disposition home or self-care (01) ==
PROVIDERS: Emergency Provider Emergency Medicine; PCP Physician Assistant
DX: N45.1 Epididymitis (principal); N50.819 Testicular pain, unspecified; I10 Essential (primary) hypertension
CPT/HCPCS: 93975; 96372; 99284; J1885

== ENCOUNTER → 2025-05-29 19:15 | Outpatient (BNV) | payer OTHER, SELFPAY | PROVIDERS: PCP Physician Assistant; Visit Provider Radiology Neuroradiology | DX: N43.3 Hydrocele, unspecified (principal) | CPT/HCPCS: 93975 ==